=== PATIENT | female | born 1950 | race Caucasian/White ===

== ENCOUNTER 2017-01-14 12:38 | Inpatient (IN) | payer MEDICARE ==
[2017-01-14] MEDS ORDERED: NORMAL SALINE 1000 ML 1,000 ML IV PRN ×2 (12:46→18:05)
[2017-01-14] MEDS ORDERED: ASPIRIN 81 MG TABLET, CHEWABLE PO ONE (12:46)
--- NOTE | 2017-01-14 13:50 | RADIOLOGY REPORT (SQ) ---
EXAM DESCRIPTION: CT HEAD WITHOUT COMPLETED DATE/TIME: 01/14/2017 1:06 pm REASON FOR STUDY: altered COMPARISON: October 2015 TECHNIQUE: Axial images acquired through the brain without intravenous contrast. Images reviewed wi th bone, brain and subdural windows. Images stored on PACS. All CT scanners at this facility use dose modulation, iterative reconstruction, and/or weight based d osing when appropriate to reduce radiation dose to as low as reasonably achievable (ALARA). [facility]: Dose Right [facility]: CareDose [facility]: Dose Right [facility]: Teradose 4D [facility]: [email or web address] RADIATION DOSE: Up-to-date CT equipment and radiation dose reduction techniques were employed. CTDIv ol: 64.6 mGy. DLP: 2326 mGy-cm. mGy. LIMITATIONS: None. FINDINGS: VENTRICLES: Normal size and contour. CEREBRUM: No masses. No hemorrhage. No midline shift. There is a small focal relative low density area in the basal ganglia on the left which has the appearance of a lacunar infarct. CEREBELLUM: No masses. No hemorrhage. No alteration of density. No evidence for acute infarction. EXTRAAXIAL SPACES: No fluid collections. No masses. ORBITS AND GLOBE: No intra- or extraconal masses. Normal contour of globe without masses. CALVARIUM: No fracture. PARANASAL SINUSES: No fluid or mucosal thickening. SOFT TISSUES: No mass or hematoma. OTHER: No other significant finding. IMPRESSION: There is a small focal relative low density area in the basal ganglia on the left which has the appearance of the lacunar infarct. No other significant intracranial abnormalities were iden tified. Other findings as noted above EVIDENCE OF ACUTE STROKE: NO. COMMENT: Quality ID # [id number]: Final reports with documentation of one or more dose reduction techniques (e.g., Automated exposure control, adjustment of the mA and/or kV according to patient size, use of iterative reconstruction technique) TECHNICAL DOCUMENTATION: JOB ID: [id number] [email or web address]- All Rights Reserved
--- NOTE | 2017-01-14 13:51 | RADIOLOGY REPORT (SQ) ---
EXAM DESCRIPTION: CHEST SINGLE VIEW COMPLETED DATE/TIME: 01/14/2017 12:58 pm REASON FOR STUDY: syncope COMPARISON: 10/27/2015 EXAM PARAMETERS: NUMBER OF VIEWS: One view. TECHNIQUE: Single frontal radiographic view of the chest acquired. RADIATION DOSE: NA LIMITATIONS: None. FINDINGS: LUNGS AND PLEURA: Mild interstitial changes seen. There is ill-defined opacification in t he right lung compared to the left. MEDIASTINUM AND HILAR STRUCTURES: No masses. Contour normal. HEART AND VASCULAR STRUCTURES: Heart normal in size. Normal vasculature. BONES: No acute findings. HARDWARE: None in the chest. OTHER: No other significant finding. IMPRESSION: Chronic lung changes. Cannot exclude airspace disease in the right lung. TECHNICAL DOCUMENTATION: JOB ID: [id number]
[2017-01-14 14:03] LABS: ABSOLUTE LYMPHOCYTES (AUTO) 1.9 10^3/uL (0.5-4.7); ABSOLUTE NEUT (AUTO) 11.4 10^3/uL (1.7-8.2); BASOPHILS % (AUTO) 0.3 % (0-2); EOSINOPHILS % (AUTO) 0.2 % (0-6); HEMATOCRIT 33.2 % (36.0-47.0); HEMOGLOBIN 11.6 g/dL (12.0-15.5); HGB HCT DIFFERENCE 1.6; LYMPHOCYTES % (AUTO) 13.4 % (13-45); MEAN CORPUSCULAR HEMOGLOBIN 31.1 pg (27.0-33.4); MEAN CORPUSCULAR HGB CONC 34.9 g/dL (32.0-36.0); MEAN CORPUSCULAR VOLUME 89 fl (80-97); MONOCYTES % (AUTO) 6.9 % (3-13); RED BLOOD COUNT 3.73 10^6/uL (3.72-5.28); RED CELL DISTRIBUTION WIDTH 13.2 % (11.5-14.0); SEGMENTED NEUTROPHILS % (AUTO) 79.2 % (42-78); VENOUS BLOOD HCO3 23.6 mmol/L (20-32); VENOUS BLOOD PCO2 35.4 mmHg (35-63); VENOUS BLOOD PH 7.44 (7.30-7.42); WHITE BLOOD COUNT 14.4 10^3/uL (4.0-10.5)
[2017-01-14 14:19] LABS: ALANINE AMINOTRANSFERASE 48 U/L (9-52); ALBUMIN 3.4 g/dL (3.5-5.0); ALKALINE PHOSPHATASE 115 U/L (38-126); ANION GAP 11 (5-19); ASPARTATE AMINO TRANSFERASE 34 U/L (14-36); BILIRUBIN,DIRECT 0.4 mg/dL (0.0-0.4); BILIRUBIN,TOTAL 0.5 mg/dL (0.2-1.3); BLOOD UREA NITROGEN 21 mg/dL (7-20); CALCIUM 9.3 mg/dL (8.4-10.2); CARBON DIOXIDE 24 mmol/L (22-30); CHLORIDE 100 mmol/L (98-107); CREATINE KINASE 27 U/L (30-135); CREATININE RESULT 0.98 mg/dL (0.52-1.25); GLUCOSE 102 mg/dL (75-110); POTASSIUM 3.6 mmol/L (3.6-5.0); SODIUM 135.3 mmol/L (137-145); TOTAL PROTEIN 6.1 g/dL (6.3-8.2)
[2017-01-14 14:31] LABS: CREATINE KINASE MB 0.24 ng/mL (<4.55)
[2017-01-14 14:32] LABS: APPEARANCE,URINE SLIGHTLY-CLOUDY; BILIRUBIN,URINE NEGATIVE (NEGATIVE); GLUCOSE, URINE NEGATIVE (NEGATIVE); KETONES,URINE NEGATIVE (NEGATIVE); LEUKOCYTE ESTERASE,URINE NEGATIVE (NEGATIVE); NITRITE,URINE NEGATIVE (NEGATIVE); PROTEIN,URINE 30 mg/dL (NEGATIVE); URINE SPECIFIC GRAVITY 1.017
[2017-01-14 14:34] LABS: TROPONIN I < 0.012 ng/mL
[2017-01-14] MEDS ORDERED: CEFTRIAXONE 1 GM/D5W RTU 1 GM/50 ML RTUPB IV ONE (14:56)
--- NOTE | 2017-01-14 14:56 | ER Document Report ---
ED General - General Chief Complaint: Altered Mental Status Stated Complaint: FALL Time Seen by Provider: 01/14/17 12:45 Mode of Arrival: Ambulatory Information source: Patient Notes: 66-year-old female history of previous CVA COPD presents with complaints of low blood pressure not feeling well and confusion. Patient is she has had problems with her memory. She denies any fevers or chills was at her primary care physician's office today noted that she had a white count of 20 and was sent in for evaluation Patient notes about a week ago she passed out and struck her head TRAVEL OUTSIDE OF THE [place] IN LAST 30 DAYS: No - HPI Onset: Last week Onset/Duration: Persistent Quality of pain: Achy Severity: Mild Pain Level: 1 Associated symptoms: Headache Exacerbated by: Denies Relieved by: Denies Similar symptoms previously: No Recently seen / treated by doctor: Yes - Related Data Allergies/Adverse Reactions: ciprofloxacin [From Cipro] Allergy (Verified 10/27/15 15:00) Past Medical History - Social History Smoking Status: Former Smoker Cigarette use (# per day): No Chew tobacco use (# tins/day): No Smoking Education Provided: No Frequency of alcohol use: None Drug Abuse: None Family History: Reviewed & Not Pertinent - Past Medical History Cardiac Medical History: Reports: Hx Hypercholesterolemia Endocrine Medical History: Reports: Hx Diabetes Mellitus Type 2 Psychiatric Medical History: Reports: Hx Depression - Immunizations Hx Pneumococcal Vaccination: 12/26/14 Review of Systems - Review of Systems Notes: REVIEW OF SYSTEMS: CONSTITUTIONAL : Denies fever, chills, or sweats. Denies recent illness. EENT: Denies eye, ear, throat, or mouth pain or symptoms. Denies nasal or sinus congestion or discharge. Denies throat, tongue, or mouth swelling or difficulty swallowing. CARDIOVASCULAR: Denies chest pain. Denies palpitations or racing or irregular heart beat. Denies ankle edema. RESPIRATORY: Denies cough, cold, or chest congestion. Denies shortness of breath, difficulty breathing, or wheezing. GASTROINTESTINAL: Denies abdominal pain or distention. Denies nausea, vomiting , or diarrhea. Denies blood in vomitus, stools, or per rectum. Denies black, tarry stools. Denies constipation. GENITOURINARY: Denies difficulty urinating, painful urination, burning, frequency, blood in urine, or discharge. FEMALE GENITOURINARY: Denies vaginal bleeding, heavy or abnormal periods, irregular periods. Denies vaginal discharge or odor. MUSCULOSKELETAL: Denies back or neck pain or stiffness. Denies joint pain or swelling. SKIN: Denies rash, lesions or sores. HEMATOLOGIC : Denies easy bruising or bleeding. LYMPHATIC: Denies swollen, enlarged glands. NEUROLOGICAL: Admits to headache confusion PSYCHIATRIC: Denies anxiety or stress. Denies depression, suicidal ideation, or homicidal ideation. ALL OTHER SYSTEMS REVIEWED AND NEGATIVE. PHYSICAL EXAMINATION: GENERAL: Well-appearing, well-nourished and in no acute distress. HEAD: Atraumatic, normocephalic. EYES: Pupils equal round and reactive to light, extraocular movements intact, conjunctiva are normal. ENT: Nares patent, oropharynx clear without exudates. Moist mucous membranes. NECK: Normal range of motion, supple without lymphadenopathy LUNGS: Breath sounds clear to auscultation bilaterally and equal. No wheezes rales or rhonchi. HEART: Regular rate and rhythm without murmurs ABDOMEN: Soft, nontender, nondistended abdomen. No guarding, no rebound. No masses appreciated. Female : deferred Musculoskeletal: Normal range of motion, no pitting or edema. No cyanosis. NEUROLOGICAL: Cranial nerves grossly intact. Normal speech, normal gait. Normal sensory, motor exams PSYCH: Normal mood, normal affect. SKIN: Warm, Dry, normal turgor, no rashes or lesions noted. Dictation was performed using [employer] voice recognition software Physical Exam - Vital signs Vitals: Temp Pulse Resp BP Pulse Ox 99.2 F 80 20 109/58 L 97 01/14/17 12:48 01/14/17 12:48 01/14/17 12:48 01/14/17 12:48 01/14/17 12:48 Course - Re-evaluation Re-evalutation: 01/14/17 15:04 Patient is noted to have a white count 14.4, there is a questionable pneumonia noted on the chest x-ray. A CT was performed and does in fact show a lacunar infarct. Patient was given aspirin. I will observe her in the hospital for further evaluation and care especially with this possible CVA 01/14/17 15:05 Patient is noted to be hypotensive and was given 2-1/2 L of normal saline for her low blood pressure - Vital Signs Vital signs: Temp Pulse Resp BP Pulse Ox 99.2 F 80 16 95/67 L 94 01/14/17 12:48 01/14/17 12:48 01/14/17 13:27 01/14/17 13:27 01/14/17 13:27 - Laboratory Result Diagrams: 01/14/17 13:38 01/14/17 13:38 Laboratory results interpreted by me: 01/14/17 01/14/17 01/14/17 13:38 13:38 13:38 WBC 14.4 H Hgb 11.6 L Hct 33.2 L Seg Neutrophils % 79.2 H Absolute Neutrophils 11.4 H VBG pH 7.44 H Sodium 135.3 L BUN 21 H Est GFR (Non-Af Amer) 57 L Creatine Kinase 27 L Total Protein 6.1 L Albumin 3.4 L Urine Protein Urine Urobilinogen 01/14/17 14:10 WBC Hgb Hct Seg Neutrophils % Absolute Neutrophils VBG pH Sodium BUN Est GFR (Non-Af Amer) Creatine Kinase Total Protein Albumin Urine Protein 30 H Urine Urobilinogen 4.0 H - Diagnostic Test Radiology reviewed: Image reviewed, Reports reviewed - EKG Interpretation by Me EKG shows normal: Sinus rhythm, [place], Intervals, QRS Complexes Discharge - Discharge Clinical Impression: CVA (cerebral vascular accident) Qualifiers: CVA mechanism: embolism Precerebral and cerebral artery: unspecified cerebral artery Qualified Code(s): I63.40 - Cerebral infarction due to embolism of unspecified cerebral artery Hypotension Qualifiers: Hypotension type: unspecified hypotension type Qualified Code(s): I95.9 - Hypotension, unspecified Condition: Stable Disposition: ADMITTED INPATIENT Admitting Provider: Hospitalist Unit Admitted: IMCU
[2017-01-14] MEDS ORDERED: HYDROMORPHONE HCL INJ/PF 2 MG/ML AMPULE IV ONE (15:03)
[2017-01-14] MEDS ORDERED: ALBUTEROL SULFATE HFA (90 MCG/PUFF) 8 GM MDI (1 MDI/ER DISP) IH PRN (17:59)
[2017-01-14] MEDS ORDERED: DOCUSATE SODIUM 100 MG CAPSULE PO PRN (18:05)
[2017-01-14] MEDS ORDERED: ONDANSETRON HCL INJ/PF 4 MG/2 ML SDV IV PRN (18:05)
--- NOTE | 2017-01-14 18:36 | PDOC H&P ---
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 However at that time she could not remember totally what happened. Sister was with her witness and reports that she lost her balance when she tripped. She did not lose her consciousness. She was not having any seizure episode. Apparently since then the patient was having discomfort and pain in the neck. Likewise the patient was noted to have confusion intermittently. There is no nausea or vomiting. Patient reports some lightheadedness and dizziness at times. Eventually her blood pressure was checked and reportedly it was in the 80s systolic. She takes 3 with blood pressure medications for hypertension. There was no diarrhea nor any increasing coughing or sinus congestion or sore throat reported likewise there is no dysuria urgency or frequency nor any nausea or vomiting. No reported abdominal discomfort nor any vaginal discharge as well. Her symptoms got worse and therefore she presents to her primary care physician where she was found to have an elevated WBC of 20,000. The patient was sent to the emergency room for evaluation. Patient however stated that she had a cortisone shot with Kenalog about 2 weeks ago from the pain center. In the emergency room WBC was 14,000. CT scan of the brain did reveal lacunar infarct but not acute. The patient was then referred for admission for stroke contributing to the fall. Past Medical History Cardiac Medical History: Reports: Hyperlipidema Pulmonary Medical History: Reports: Chronic Obstructive Pulmonary Disease (COPD) Neurological Medical History: Reports: Ischemic CVA, Other - Priors mini stroke without any deficits. Endocrine Medical History: Reports: Diabetes Mellitus Type 2 Psychiatric Medical History: Reports: Depression Past Surgical History Past Surgical History: No recent surgeries. Past Surgical History: Reports: None Social History Information Source: Patient Smoking Status: Current Every Day Smoker Cigarettes Packs Per Day: 1 Frequency of Alcohol Use: Rare Hx Recreational Drug Use: No Drugs: None Hx Prescription Drug Abuse: No - Advance Directive Resuscitation Status: Full Code Family History Family History: CVA, DM, Hypertension Parental Family History Reviewed: Yes Children Family History Reviewed: Yes Sibling(s) Family History Reviewed.: Yes Medication/Allergy Home Medications: Atorvastatin Calcium [Lipitor 40 mg Tablet] 40 mg PO DAILY 10/27/15 Fluoxetine HCl [Prozac] 40 mg PO QHS 10/27/15 Hydrochlorothiazide 25 mg PO DAILY 10/27/15 Losartan Potassium 100 mg PO DAILY 10/27/15 Metformin HCl 500 mg PO DAILYP PRN 10/27/15 Metoprolol Succinate 25 mg PO DAILY 10/27/15 Morphine Sulfate 30 mg PO BID@1400,2100 10/27/15 Oxymorphone HCl [Opana] 5 mg PO Q12@0700,1900 10/27/15 Tramadol HCl 100 mg PO BID@1400,209910/27/15 Gabapentin [Neurontin] 1,200 mg PO Q8 10/29/15 Albuterol Sulfate [Proair HFA] 2 puff IH QIDP PRN 01/14/17 Ibuprofen [Motrin 600 mg Tablet] 600 mg PO BIDP PRN 01/14/17 Ondansetron [Zofran Odt] 8 mg PO Q8HP PRN 01/14/17 Tramadol HCl [Ultram 50 mg Tablet] 50 mg PO DAILYP PRN 01/14/17 Allergies/Adverse Reactions: ciprofloxacin [From Cipro] Allergy (Verified 10/27/15 15:00) Review of Systems Constitutional: PRESENT: headache(s) - Intermittent mainly on the back of the head where she hit the floor. ABSENT: chills, fever(s), night sweats, weakness , weight gain, weight loss Eyes: ABSENT: visual disturbances Ears: ABSENT: hearing changes Nose, Mouth, and Throat: ABSENT: mouth pain, sore throat Cardiovascular: ABSENT: chest pain, dyspnea on exertion, edema, orthropnea, palpitations Respiratory: PRESENT: cough - Occasional. ABSENT: dyspnea, hemoptysis, sputum Gastrointestinal: PRESENT: constipation. ABSENT: abdominal pain, diarrhea, hematemesis, hematochezia, melena, nausea, vomiting Genitourinary: ABSENT: difficulty urinating, dysuria, hematuria Musculoskeletal: ABSENT: joint swelling Integumentary: ABSENT: pruritus, rash, wounds Neurological: PRESENT: confusion, dizziness. ABSENT: abnormal gait, abnormal speech, focal weakness, syncope Psychiatric: ABSENT: anxiety, depression, homidical ideation, suicidal ideation Endocrine: ABSENT: cold intolerance, heat intolerance, polydipsia, polyphagia, polyuria Hematologic/Lymphatic: ABSENT: easy bleeding, easy bruising Physical Exam Vital Signs: Temp Pulse Resp BP Pulse Ox 98.4 F 77 18 119/78 91 L 01/14/17 17:15 01/14/17 17:15 01/14/17 17:15 01/14/17 17:15 01/14/17 17:15 Intake & Output 01/13/17 01/14/17 01/15/17 06:59 06:59 06:59 Weight 91.8 kg General appearance: PRESENT: no acute distress, morbidly obese Head exam: PRESENT: atraumatic - No noted rash nor ecchymosis nor wounds on the head., normocephalic Eye exam: PRESENT: conjunctiva pink, EOMI, PERRLA. ABSENT: scleral icterus Ear exam: PRESENT: normal external ear exam Mouth exam: PRESENT: dry mucosa, neck supple, tongue midline Throat exam: ABSENT: post pharyngeal erythema, tonsillar erythema Neck exam: ABSENT: carotid bruit, JVD, lymphadenopathy, thyromegaly Respiratory exam: PRESENT: clear to auscultation thai, unlabored. ABSENT: rales , rhonchi, wheezes Cardiovascular exam: PRESENT: RRR, +S1, +S2. ABSENT: diastolic murmur, gallop, rubs, systolic murmur Pulses: PRESENT: normal dorsalis pedis pul Vascular exam: PRESENT: normal capillary refill GI/Abdominal exam: PRESENT: normal bowel sounds, soft. ABSENT: distended, guarding, mass, organolmegaly, rebound, tenderness Rectal exam: PRESENT: deferred Extremities exam: PRESENT: full ROM. ABSENT: calf tenderness, clubbing, pedal edema Neurological exam: PRESENT: alert, awake, oriented to person, oriented to place , oriented to time, oriented to situation Psychiatric exam: PRESENT: appropriate affect, normal mood. ABSENT: homicidal ideation, suicidal ideation Skin exam: PRESENT: dry, intact, warm. ABSENT: cyanosis, rash Results Laboratory Results: 01/14/17 16:55 Troponin I < 0.012 Impressions: Chest X-Ray 01/14/17 12:46 IMPRESSION: Chronic lung changes. Cannot exclude airspace disease in the right lung. Head CT 01/14/17 12:50 IMPRESSION: There is a small focal relative low density area in the basal ganglia on the left which has the appearance of the lacunar infarct. No other significant intracranial abnormalities were identified. Other findings as noted above EVIDENCE OF ACUTE STROKE: NO. Assessment & Plan - Diagnosis (1) Lacunar infarction Is this a current diagnosis for this admission?: Yes (2) Confusion Is this a current diagnosis for this admission?: Yes (3) Leukocytosis Qualifiers: Leukocytosis type: unspecified Qualified Code(s): D72.829 - Elevated white blood cell count, unspecified Is this a current diagnosis for this admission?: Yes (4) Hypotension Qualifiers: Hypotension type: hypotension due to drug Qualified Code(s): I95.2 - Hypotension due to drugs Is this a current diagnosis for this admission?: Yes (5) COPD (chronic obstructive pulmonary disease) Qualifiers: COPD type: unspecified COPD Qualified Code(s): J44.9 - Chronic obstructive pulmonary disease, unspecified Is this a current diagnosis for this admission?: Yes (6) Hyperlipidemia Qualifiers: Hyperlipidemia type: unspecified Qualified Code(s): E78.5 - Hyperlipidemia , unspecified Is this a current diagnosis for this admission?: Yes (7) Diabetes mellitus type 2 in obese Is this a current diagnosis for this admission?: Yes (8) Depression Qualifiers: Depression Type: unspecified Qualified Code(s): F32.9 - Major depressive disorder, single episode, unspecified (9) History of stroke Is this a current diagnosis for this admission?: Yes - Time Time Spent: 50 to 70 Minutes Within: within 48 hours - Inpatient Certification Based on my medical assessment, after consideration of the patient's comorbidities, presenting symptoms, or acuity I expect that the services needed warrant INPATIENT care.: Yes I certify that my determination is in accordance with my understanding of Medicare's requirements for reasonable and necessary INPATIENT services [42 CFR 412.3e].: Yes Medical Necessity: Need Close Monitoring Due to Risk of Patient Decompensation, Need For IV Fluids, Risk of Complication if Not Cared For in Hospital Post Hospital Care: D/C [employer] Inspector Documentation - Plan Summary Plan Summary: The patient will be admitted to telemetry. We will obtain MRI of the brain as well as carotid Doppler and 2D echocardiogram. In the meantime I will put the patient on aspirin. We will obtain a cervical spine CT. I will hold her antihypertensive medications. I will hydrate the patient with normal saline. We will monitor blood pressure and creatinine. I will continue her home medications for pain control except for the Ultram. Her leukocytosis probably related to recent intra-articular corticosteroid. We will proceed with a urine culture, but hold any antibiotics for now. We will check a KUB for impaction. DVT prophylaxis with Lovenox will be placed. Further testing depends on the initial evaluations outlined above.
[2017-01-14] MEDS ORDERED: ALBUTEROL SULFATE HFA (90 MCG/PUFF) 200 PUFF/8.5 GM MDI IH PRN (18:38)
[2017-01-14] MEDS ORDERED: OXYMORPHONE HCL 5 MG PO SCH (19:00)
[2017-01-14] MEDS ORDERED: ENOXAPARIN SODIUM INJ 40 MG/0.4 ML DISP.SYRIN SUBCUT ONE (19:30)
--- NOTE | 2017-01-14 20:18 | RADIOLOGY REPORT (SQ) ---
EXAM DESCRIPTION: CT CERVICAL SPINE WITHOUT COMPLETED DATE/TIME: 01/14/2017 7:52 pm REASON FOR STUDY: neck pain, fall COMPARISON: None. TECHNIQUE: Axial images acquired through the cervical spine without intravenous contrast. Images re viewed with lung, soft tissue and bone windows. Reconstructed coronal and sagittal MPR images review ed. Images stored on PACS. All CT scanners at this facility use dose modulation, iterative reconstruction, and/or weight based d osing when appropriate to reduce radiation dose to as low as reasonably achievable (ALARA). [facility]: Dose Right [facility]: CareDose [facility]: Dose Right [facility]: Teradose 4D [facility]: Smart [employer] RADIATION DOSE: Up-to-date CT equipment and radiation dose reduction techniques were employed. CTDIv ol: 27.5 mGy. DLP: 520 mGy-cm. mGy. LIMITATIONS: None. FINDINGS: ALIGNMENT: Anatomic. MINERALIZATION: Normal. VERTEBRAL BODIES: No fractures or dislocation. DISCS: Multilevel disc space narrowing with osteophytes. FACETS, LATERAL MASSES, POSTERIOR ELEMENTS: Facet arthropathy. No fractures. No dislocation. No ac alla findings. HARDWARE: None in the spine. VISUALIZED RIBS: No fractures. LUNG APICES AND SOFT TISSUES: No significant or acute findings. OTHER: No other significant finding. IMPRESSION: CHRONIC DEGENERATIVE CHANGES. NO ACUTE FINDINGS. TECHNICAL DOCUMENTATION: JOB ID: [id number] Quality ID # [id number]: Final reports with documentation of one or more dose reduction techniques (e.g., Au tomated exposure control, adjustment of the mA and/or kV according to patient size, use of iterative reconstruction technique) 2010 [employer]- All Rights Reserved
--- NOTE | 2017-01-14 20:21 | RADIOLOGY REPORT (SQ) ---
EXAM DESCRIPTION: KUB/ABDOMEN (SINGLE VIEW) COMPLETED DATE/TIME: 01/14/2017 8:01 pm REASON FOR STUDY: Constipation and impaction COMPARISON: None. NUMBER OF VIEWS: One view. TECHNIQUE: Supine radiographic image of the abdomen acquired. LIMITATIONS: None. FINDINGS: BOWEL GAS PATTERN: Normal bowel gas pattern. No dilated loops. CONSTIPATION: moderate CALCIFICATIONS: No suspicious calcifications. SOFT TISSUES: No gross mass or suggestion of organomegaly. HARDWARE: None in the abdomen. BONES: No acute fracture. No worrisome bone lesions. OTHER: No other significant finding. IMPRESSION: NO RADIOGRAPHIC EVIDENCE FOR ACUTE ABDOMINAL DISEASE. Moderate constipation. TECHNICAL DOCUMENTATION: JOB ID: [id number]- All Rights Reserved
--- NOTE | 2017-01-14 20:53 | RADIOLOGY REPORT (SQ) ---
EXAM DESCRIPTION: MRI HEAD WITHOUT COMPLETED DATE/TIME: 01/14/2017 8:43 pm REASON FOR STUDY: stroke COMPARISON: Head CT from 01/14/2017 TECHNIQUE: Multiplanar imaging includes non-contrasted T1, T2, FLAIR, and Diffusion with ADC map seq uences. Images stored on PACS. LIMITATIONS: None. FINDINGS: ANATOMY: No anomalies. Normal vascular flow voids. Pituitary fossa normal. CSF SPACES: Normal in size and contour. No hemorrhage. CEREBRUM: A few high-signal intensity lesions scattered throughout the white matter on FLAIR imaging with distribution suggesting chronic micro-vascular ischemic change. Sulci and gyri normal in size a nd contour. No evidence of hemorrhage, mass or extraaxial fluid collection. POSTERIOR FOSSA: No signal alteration. No hemorrhage. No edema, masses or mass effect. Internal nilda tory canals, cerebello-pontine angles, mastoids normal. DIFFUSION: Negative for acute or sub-acute infarction. ORBITS: No masses. Globes normal. PARANASAL SINUSES: No fluid levels. Mucosa normal. OTHER: No other significant finding. IMPRESSION: MILD CHRONIC MICROVASCULAR ISCHEMIC CHANGE. NO ACUTE ISCHEMIA, HEMORRHAGE, OR MASS LESI ON. EVIDENCE OF ACUTE STROKE: NO. TECHNICAL DOCUMENTATION: JOB ID: [id number] [employer]- All Rights Reserved
[2017-01-14] MEDS: GABAPENTIN 400 MG CAPSULE PO SCH (21:06)
[2017-01-14] MEDS: MORPHINE SULFATE IR 30 MG TABLET PO SCH (21:07)
[2017-01-14] MEDS: FLUOXETINE HCL 20 MG CAPSULE PO SCH (21:07)
[2017-01-14] MEDS: OXYMORPHONE HCL 5 MG PO SCH (21:11)
[2017-01-15] MEDS: ACETAMINOPHEN 325 MG TABLET PO PRN ×2 (00:39→11:59)
[2017-01-15] MEDS: GABAPENTIN 400 MG CAPSULE PO SCH ×3 (05:34→21:44)
[2017-01-15] MEDS: LANSOPRAZOLE 30 MG TAB.RAP.DR PO SCH (05:34)
[2017-01-15 05:52] LABS: ABSOLUTE EOSINOPHILS # (AUTO) 0.1 10^3/uL (0.0-0.6); ABSOLUTE LYMPHOCYTES (AUTO) 2.5 10^3/uL (0.5-4.7); ABSOLUTE MONOCYTES (AUTO) 0.8 10^3/uL (0.1-1.4); ABSOLUTE NEUT (AUTO) 6.7 10^3/uL (1.7-8.2); BASOPHILS % (AUTO) 0.5 % (0-2); EOSINOPHILS % (AUTO) 0.5 % (0-6); HEMATOCRIT 28.8 % (36.0-47.0); HEMOGLOBIN 9.9 g/dL (12.0-15.5); HGB HCT DIFFERENCE 0.9; LYMPHOCYTES % (AUTO) 24.4 % (13-45); MEAN CORPUSCULAR HEMOGLOBIN 31.1 pg (27.0-33.4); MEAN CORPUSCULAR HGB CONC 34.4 g/dL (32.0-36.0); MEAN CORPUSCULAR VOLUME 90 fl (80-97); RED BLOOD COUNT 3.19 10^6/uL (3.72-5.28); RED CELL DISTRIBUTION WIDTH 13.3 % (11.5-14.0); SEGMENTED NEUTROPHILS % (AUTO) 66.6 % (42-78); WHITE BLOOD COUNT 10.1 10^3/uL (4.0-10.5)
[2017-01-15 06:18] LABS: ANION GAP 9 (5-19); BLOOD UREA NITROGEN 12 mg/dL (7-20); CARBON DIOXIDE 25 mmol/L (22-30); CHLORIDE 107 mmol/L (98-107); CHOLESTEROL 123.37 mg/dL (0-200); Direct HDL 51 mg/dL (>40); GLUCOSE 86 mg/dL (75-110); POTASSIUM 3.7 mmol/L (3.6-5.0); SODIUM 141.1 mmol/L (137-145); TRIGLYCERIDES 69 mg/dL (<150)
[2017-01-15 06:29] LABS: DIRECT LDL 48 mg/dL (<100)
[2017-01-15] MEDS ORDERED: OXYMORPHONE HCL 5 MG PO ONE (07:45)
[2017-01-15] MEDS: METOPROLOL SUCCINATE 25 MG TAB.SR.24H PO SCH (09:53)
[2017-01-15] MEDS: ATORVASTATIN CALCIUM 40 MG TABLET PO SCH (09:53)
[2017-01-15] MEDS: ASPIRIN 81 MG TABLET, CHEWABLE PO SCH (09:53)
[2017-01-15] MEDS: ENOXAPARIN SODIUM INJ 40 MG/0.4 ML DISP.SYRIN SUBCUT SCH (09:54)
--- NOTE | 2017-01-15 10:39 | EKG REPORT ---
SEVERITY:- ABNORMAL ECG - ACCELERATED JUNCTIONAL RHYTHM : Confirmed by: Virginia Willoughby MD 15-Jan-2017 10:38:31
[2017-01-15] MEDS ORDERED: NORMAL SALINE 1000 ML 1,000 ML IV PRN (12:02)
--- NOTE | 2017-01-15 12:09 | PDOC PROGRESS REPORT ---
Subjective Progress Note for:: 01/15/17 Subjective:: Still with headache and back pain but less. No reported chills fever. No nausea or vomiting. No coughing or shortness of breath. No PND orthopnea. Physical Exam Vital Signs: Temp Pulse Resp BP Pulse Ox 97.8 F 59 L 18 113/54 L 94 01/15/17 07:13 01/15/17 08:00 01/15/17 08:00 01/15/17 08:00 01/15/17 08:00 Intake & Output 01/14/17 01/15/17 01/16/17 06:59 06:59 06:59 Intake Total 1572 Output Total 2500 Balance -928 Weight 91.2 kg General appearance: PRESENT: no acute distress, cooperative, morbidly obese Head exam: PRESENT: normocephalic Eye exam: PRESENT: EOMI Mouth exam: PRESENT: moist, neck supple Neck exam: ABSENT: JVD Respiratory exam: PRESENT: clear to auscultation thai. ABSENT: rhonchi, wheezes Cardiovascular exam: PRESENT: RRR. ABSENT: gallop GI/Abdominal exam: PRESENT: hypoactive bowel sounds, soft. ABSENT: distended - Obese Neurological exam: PRESENT: alert, awake, oriented to person, oriented to place , oriented to time, oriented to situation Skin exam: PRESENT: dry, warm. ABSENT: cyanosis Results Laboratory Results: 01/15/17 04:52 01/15/17 04:52 01/15/17 01/15/17 04:52 04:52 WBC 10.1 RBC 3.19 L Hgb 9.9 L Hct 28.8 L MCV 90 MCH 31.1 MCHC 34.4 RDW 13.3 Plt Count 325 Seg Neutrophils % 66.6 Lymphocytes % 24.4 Monocytes % 8.0 Eosinophils % 0.5 Basophils % 0.5 Absolute Neutrophils 6.7 Absolute Lymphocytes 2.5 Absolute Monocytes 0.8 Absolute Eosinophils 0.1 Absolute Basophils 0.0 Sodium 141.1 Potassium 3.7 Chloride 107 Carbon Dioxide 25 Anion Gap 9 BUN 12 Creatinine 0.60 Est GFR ( Amer) > 60 Est GFR (Non-Af Amer) > 60 Glucose 86 Calcium 9.0 Triglycerides 69 Cholesterol 123.37 LDL Cholesterol Direct 48 VLDL Cholesterol 14.0 HDL Cholesterol 51 Impressions: Cervical Spine CT 01/14/17 00:00 IMPRESSION: CHRONIC DEGENERATIVE CHANGES. NO ACUTE FINDINGS. Head MRI 01/14/17 00:00 IMPRESSION: MILD CHRONIC MICROVASCULAR ISCHEMIC CHANGE. NO ACUTE ISCHEMIA, HEMORRHAGE, OR MASS LESION. EVIDENCE OF ACUTE STROKE: NO. KUB X-Ray 01/14/17 00:00 IMPRESSION: NO RADIOGRAPHIC EVIDENCE FOR ACUTE ABDOMINAL DISEASE. Moderate constipation. Chest X-Ray 01/14/17 12:46 IMPRESSION: Chronic lung changes. Cannot exclude airspace disease in the right lung. Head CT 01/14/17 12:50 IMPRESSION: There is a small focal relative low density area in the basal ganglia on the left which has the appearance of the lacunar infarct. No other significant intracranial abnormalities were identified. Other findings as noted above EVIDENCE OF ACUTE STROKE: NO. Assessment & Plan - Diagnosis (1) Lacunar infarction Is this a current diagnosis for this admission?: Yes (2) Confusion Is this a current diagnosis for this admission?: Yes (3) Leukocytosis Qualifiers: Leukocytosis type: unspecified Qualified Code(s): D72.829 - Elevated white blood cell count, unspecified Is this a current diagnosis for this admission?: Yes (4) Hypotension Qualifiers: Hypotension type: hypotension due to drug Qualified Code(s): I95.2 - Hypotension due to drugs Is this a current diagnosis for this admission?: Yes (5) COPD (chronic obstructive pulmonary disease) Qualifiers: COPD type: unspecified COPD Qualified Code(s): J44.9 - Chronic obstructive pulmonary disease, unspecified Is this a current diagnosis for this admission?: Yes (6) Hyperlipidemia Qualifiers: Hyperlipidemia type: unspecified Qualified Code(s): E78.5 - Hyperlipidemia , unspecified Is this a current diagnosis for this admission?: Yes (7) Diabetes mellitus type 2 in obese Is this a current diagnosis for this admission?: Yes (8) Depression Qualifiers: Depression Type: unspecified Qualified Code(s): F32.9 - Major depressive disorder, single episode, unspecified (9) History of stroke Is this a current diagnosis for this admission?: Yes - Time Time Spent with patient: 15-24 minutes - Plan Summary Plan Summary: Continue medications for pain management. Flexeril. Continue antiplatelet therapy. I have educated the patient and the family they may have to discontinue diuretics and ARB for hypertension. Keep beta-yesika. We will observe the patient overnight and if it continues to get better in the morning we will discharge home.
[2017-01-15] MEDS: CYCLOBENZAPRINE HCL 10 MG TABLET PO SCH ×2 (13:09→21:44)
[2017-01-15] MEDS: MORPHINE SULFATE IR 30 MG TABLET PO SCH ×2 (13:09→21:20)
[2017-01-15] MEDS: OXYMORPHONE HCL 5 MG PO SCH (18:22)
[2017-01-15] MEDS: FLUOXETINE HCL 20 MG CAPSULE PO SCH (21:44)
[2017-01-16] MEDS: ACETAMINOPHEN 325 MG TABLET PO PRN (02:58)
[2017-01-16] MEDS: CYCLOBENZAPRINE HCL 10 MG TABLET PO SCH (05:42)
[2017-01-16] MEDS: LANSOPRAZOLE 30 MG TAB.RAP.DR PO SCH (05:42)
[2017-01-16] MEDS: GABAPENTIN 400 MG CAPSULE PO SCH (05:42)
[2017-01-16 06:26] LABS: HEMATOCRIT 28.5 % (36.0-47.0); HEMOGLOBIN 9.9 g/dL (12.0-15.5); HGB HCT DIFFERENCE 1.2; MEAN CORPUSCULAR HGB CONC 34.6 g/dL (32.0-36.0); MEAN CORPUSCULAR VOLUME 90 fl (80-97); RED BLOOD COUNT 3.18 10^6/uL (3.72-5.28); RED CELL DISTRIBUTION WIDTH 13.2 % (11.5-14.0); WHITE BLOOD COUNT 9.3 10^3/uL (4.0-10.5)
[2017-01-16] MEDS: OXYMORPHONE HCL 5 MG PO SCH (06:42)
[2017-01-16] MEDS: METOPROLOL SUCCINATE 25 MG TAB.SR.24H PO SCH (09:53)
[2017-01-16] MEDS: ASPIRIN 81 MG TABLET, CHEWABLE PO SCH (09:53)
[2017-01-16] MEDS: ATORVASTATIN CALCIUM 40 MG TABLET PO SCH (09:53)
[2017-01-16] MEDS: ENOXAPARIN SODIUM INJ 40 MG/0.4 ML DISP.SYRIN SUBCUT SCH (09:54)
--- NOTE | 2017-01-16 10:35 | PDOC DISCHARGE SUMMARY ---
General - Admit/Disc Date/PCP Admission Date/Primary Care Provider: 01/14/17 18:05 Discharge Date: 01/16/17 - Discharge Diagnosis (1) Confusion Is this a current diagnosis for this admission?: Yes (2) Leukocytosis Is this a current diagnosis for this admission?: Yes (3) Hypotension Is this a current diagnosis for this admission?: Yes (4) COPD (chronic obstructive pulmonary disease) Is this a current diagnosis for this admission?: Yes (5) Hyperlipidemia Is this a current diagnosis for this admission?: Yes (6) Diabetes mellitus type 2 in obese Is this a current diagnosis for this admission?: Yes (8) History of stroke Is this a current diagnosis for this admission?: Yes - Additional Information Resuscitation Status: Full Code Discharge Diet: Cardiac - Low-fat low-salt, Diabetic - No concentrated sweets Discharge Activity: Activity As Tolerated, Balance Activity w/Rest Home Medications: Atorvastatin Calcium [Lipitor 40 mg Tablet] 40 mg PO DAILY 10/27/15 Fluoxetine HCl [Prozac] 40 mg PO QHS 10/27/15 Metformin HCl 500 mg PO DAILYP PRN 10/27/15 Metoprolol Succinate 25 mg PO DAILY 10/27/15 Morphine Sulfate 30 mg PO BID@1400,2100 10/27/15 Oxymorphone HCl [Opana] 5 mg PO Q12@0700,1900 10/27/15 Gabapentin [Neurontin] 1,200 mg PO Q8 10/29/15 Albuterol Sulfate [Proair HFA] 2 puff IH QIDP PRN 01/14/17 Ibuprofen [Motrin 600 mg Tablet] 600 mg PO BIDP PRN 01/14/17 Ondansetron [Zofran Odt] 8 mg PO Q8HP PRN 01/14/17 Amox Tr/Potassium Clavulanate [Augmentin "500" Tablet] 1 tab PO Q8 #30 tablet 01/16/17 Aspirin [Aspirin 81 mg Chewable Tablet] 81 mg PO DAILY tab.chew 01/16/17 Cyclobenzaprine HCl [Flexeril 10 mg Tablet] 5 mg PO Q8 PRN tablet 01/16/17 Docusate Sodium [Colace 100 mg Capsule] 100 mg PO BIDP PRN capsule 01/16/17 Additional Information: Return to the emergency room if symptoms recur. Carotid Doppler and echocardiogram outpatient with primary care physician. 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 However at that time she could not remember totally what happened. Sister was with her witness and reports that she lost her balance when she tripped. She did not lose her consciousness. She was not having any seizure episode. Apparently since then the patient was having discomfort and pain in the neck. Likewise the patient was noted to have confusion intermittently. There is no nausea or vomiting. Patient reports some lightheadedness and dizziness at times. Eventually her blood pressure was checked and reportedly it was in the 80s systolic. She takes 3 with blood pressure medications for hypertension. There was no diarrhea nor any increasing coughing or sinus congestion or sore throat reported likewise there is no dysuria urgency or frequency nor any nausea or vomiting. No reported abdominal discomfort nor any vaginal discharge as well. Her symptoms got worse and therefore she presents to her primary care physician where she was found to have an elevated WBC of 20,000. The patient was sent to the emergency room for evaluation. Patient however stated that she had a cortisone shot with Kenalog about 2 weeks ago from the pain center. In the emergency room WBC was 14,000. CT scan of the brain did reveal lacunar infarct but not acute. The patient was then referred for admission for stroke contributing to the fall. Physical Exam Vital Signs: Temp Pulse Resp BP Pulse Ox 98.6 F 70 16 129/71 H 94 01/16/17 07:41 01/16/17 07:41 01/16/17 07:41 01/16/17 07:41 01/16/17 07:41 Intake & Output 01/15/17 01/16/17 01/17/17 06:59 06:59 06:59 Intake Total 1572 3514 Output Total 2500 1303 Balance -928 2211 Weight 91.2 kg 92.4 kg General appearance: PRESENT: no acute distress, cooperative Head exam: PRESENT: normocephalic Eye exam: PRESENT: EOMI Mouth exam: PRESENT: moist, neck supple Neck exam: ABSENT: JVD Respiratory exam: PRESENT: clear to auscultation thai. ABSENT: rhonchi, wheezes Cardiovascular exam: PRESENT: RRR. ABSENT: gallop GI/Abdominal exam: PRESENT: soft. ABSENT: distended, tenderness Extremities exam: ABSENT: pedal edema Neurological exam: PRESENT: alert, awake, oriented to person, oriented to place , oriented to time, oriented to situation, CN II-XII grossly intact Skin exam: PRESENT: dry, warm. ABSENT: cyanosis Results Laboratory Results: 01/16/17 05:15 01/15/17 04:52 01/16/17 05:15 WBC 9.3 RBC 3.18 L Hgb 9.9 L Hct 28.5 L MCV 90 MCH 31.0 MCHC 34.6 RDW 13.2 Plt Count 287 Impressions: Cervical Spine CT 01/14/17 00:00 IMPRESSION: CHRONIC DEGENERATIVE CHANGES. NO ACUTE FINDINGS. Head MRI 01/14/17 00:00 IMPRESSION: MILD CHRONIC MICROVASCULAR ISCHEMIC CHANGE. NO ACUTE ISCHEMIA, HEMORRHAGE, OR MASS LESION. EVIDENCE OF ACUTE STROKE: NO. KUB X-Ray 01/14/17 00:00 IMPRESSION: NO RADIOGRAPHIC EVIDENCE FOR ACUTE ABDOMINAL DISEASE. Moderate constipation. Chest X-Ray 01/14/17 12:46 IMPRESSION: Chronic lung changes. Cannot exclude airspace disease in the right lung. Head CT 01/14/17 12:50 IMPRESSION: There is a small focal relative low density area in the basal ganglia on the left which has the appearance of the lacunar infarct. No other significant intracranial abnormalities were identified. Other findings as noted above EVIDENCE OF ACUTE STROKE: NO. Qualifiers PATEINT BEING DISCHARGED WITH ANY OF THE FOLLOWING DIAGNOSIS?: No Plan Discharge Plan: Follow-up with primary care physician in 1 week. Time Spent: Less than 30 Minutes
[2017-01-16] MEDS ORDERED: INFLUENZA ADLT QUAD (36MOS+) 2017-18 VAC 0.5 ML SYR IM PRN (11:30)
[2017-01-16] MEDS ORDERED: AMOXICILLIN TR/POT CLAVULANATE 500-125 MG TAB PO ONE (12:30)
[2017-01-16 12:41] VITALS: BP 127/62
[2017-01-16] MEDS ORDERED: AMOXICILLIN TR/POT CLAVULANATE 500-125 MG TAB PO SCH (22:00)
== END 2017-01-16 13:41 | disposition home health service (06) | DRG 552 ==
LOC: ER 12:38 → EH 15:36 → UNDOADMIN 15:36 → EH 17:12 → 3W 17:12
PROC: 3E0234Z Introduction of Serum, Toxoid and Vaccine into Muscle, Percutaneous Approach (ICD-10-PCS; principal; 2017-01-16)
DX: M54.2 Cervicalgia (principal); R41.82 Altered mental status, unspecified; R41.0 Disorientation, unspecified; I95.2 Hypotension due to drugs; E78.5 Hyperlipidemia, unspecified; E11.9 Type 2 diabetes mellitus without complications; E66.9 Obesity, unspecified; G89.4 Chronic pain syndrome; J44.9 Chronic obstructive pulmonary disease, unspecified; W01.0XXA Fall on same level from slipping, tripping and stumbling without subsequent striking against object, initial encounter; I10 Essential (primary) hypertension; F32.9 Major depressive disorder, single episode, unspecified; F17.210 Nicotine dependence, cigarettes, uncomplicated; K59.00 Constipation, unspecified; D72.829 Elevated white blood cell count, unspecified; Z68.35 Body mass index [BMI] 35.0-35.9, adult; Z23 Encounter for immunization; Z88.3 Allergy status to other anti-infective agents; Z79.899 Other long term (current) drug therapy; Z86.73 Personal history of transient ischemic attack (TIA), and cerebral infarction without residual deficits; Z82.3 Family history of stroke; Z83.3 Family history of diabetes mellitus; Z82.49 Family history of ischemic heart disease and other diseases of the circulatory system
CPT/HCPCS: 36415; 70450; 70551; 71010; 72125; 74000; 80048; 80053; 80061; 81001; 82550; 82553; 82803; 83036; 83605; 84484; 85025; 85027; 87040; 87086; 90686; 93005; 93010; 96361; 96365; 96375; 99285; G8978-GP; G8979-GP; J0696; J1170; J1650; J2405; J3490; J7030

== ENCOUNTER 2017-01-27 12:10 | Inpatient (IN) | payer MEDICARE ==
[2017-01-27] MEDS ORDERED: LIDOCAINE 0.5% INJ-PF (5 MG/ML) 50 ML SDV INFIL ONE (13:06)
--- NOTE | 2017-01-27 13:29 | ER Document Report ---
ED General - General Chief Complaint: Headache >24 hrs old Stated Complaint: HEADACHE Time Seen by Provider: 01/27/17 12:55 Notes: 66-year-old female presents with ongoing headache posterior constant severe for 1-1/2 weeks ever since she had a fall. She has also been having intermittent incoordination issues on both sides and speech difficulties. This is her third ED visit. She was seen yesterday had a normal CT, labs and MRI. She states that when she was discharge she still had a headache. She denies fever chills but has had some nausea and vomiting and had not taken any of her morning meds. She has a long history of chronic pain and is on multiple pain management medications including opioids and adjunct of medicines. TRAVEL OUTSIDE OF THE [place] IN LAST 30 DAYS: No - Related Data Allergies/Adverse Reactions: ciprofloxacin [From Cipro] Allergy (Verified 01/27/17 12:18) Past Medical History - Social History Smoking Status: Unknown if Ever Smoked Family History: CVA, DM, Hypertension Patient has suicidal ideation: No Patient has homicidal ideation: No - Past Medical History Cardiac Medical History: Reports: Hx Hypercholesterolemia Pulmonary Medical History: Reports: Hx COPD Endocrine Medical History: Reports: Hx Diabetes Mellitus Type 2 Renal/ Medical History: Denies: Hx Peritoneal Dialysis Psychiatric Medical History: Reports: Hx Depression Past Surgical History: Reports: Hx Appendectomy, Hx Cholecystectomy, Hx Hysterectomy - Immunizations Hx Pneumococcal Vaccination: 12/26/14 Review of Systems - Review of Systems Notes: REVIEW OF SYSTEMS GEN: Weakness ENT: Denies sore throat, nasal discharge, ear pain EYES: Denies blurry vision, eye pain, discharge CV: Denies chest pain, palpitations, edema RESP: Denies cough, shortness of breath, wheezing GI: Nausea and p.o. intolerance MSK: Denies joint pain/swelling, edema, SKIN: Denies rash, skin lesions LYMPH: Denies swollen glands/lymph nodes NEURO: Headache and neurologic symptoms as above PSYCH: Denies depression, suicidal or homicidal ideation PHYSICAL EXAMINATION General: No acute distress, well-nourished obese. Chronically ill-appearing. Head: Atraumatic, normocephalic ENT: Mouth normal, oropharynx moist, no exudates or tonsillar enlargement Eyes: Conjunctiva normal, pupils equal, lids normal Neck: No JVD, supple, no guarding CVS: Normal rate, regular rhythm, no murmurs Resp: No resp distress, equal and normal breath sounds bilaterally GI: Nondistended, soft, no tenderness to palpation, no rebound or guarding Ext: No deformities, no edema, normal range of motion in upper and lower ext Back: No CVA or midline TTP Skin: No rash, warm Lymphatic: No lymphadeopathy noted Neuro: Awake, alert. Face symmetric. GCS 15. Stuttering speech. Hyperalgesia to the face. Symmetric movement. Slightly weak on the right side secondary to pain, lower extremity. Physical Exam - Vital signs Vitals: Pulse Resp BP Pulse Ox 84 19 122/89 H 98 01/27/17 12:18 01/27/17 12:18 01/27/17 12:18 01/27/17 12:18 Course - Re-evaluation Re-evalutation: 01/27/17 13:28 Patient with chronic pain presents with ongoing headache and neurologic symptoms. She had an MRI yesterday that was normal. Her differential includes migraine, complicated migraine, but also [employer] infection. I doubt bacterial meningitis given the chronicity however viral infection and encephalitis is still on the list. She was offered LP, and I think she is too confused to consent. Her twin sister at the bedside consents. We will get basic labs pursue lumbar puncture and eventually will admit for further neurologic workup. 01/27/17 15:07 Normal. LP unsuccessful. Admitted, accepted by Dr. Bledsoe - Vital Signs Vital signs: Temp Pulse Resp BP Pulse Ox 84 19 122/89 H 98 01/27/17 12:18 01/27/17 12:18 01/27/17 12:18 01/27/17 12:18 - Laboratory Result Diagrams: 01/27/17 14:00 01/27/17 14:00 Laboratory results interpreted by me: 01/27/17 01/27/17 14:00 14:00 WBC 12.1 H Plt Count 594 H Absolute Neutrophils 9.3 H Potassium 3.5 L Chloride 97 L BUN 22 H Calcium 10.3 H Procedures - Lumbar Puncture Lumbar puncture Time completed: 15:10 Consent obtained: Yes Lumbar puncture pre-procedure: Sterile PPE donned, Betadine prep applied Patient position: Sitting Needle size: 18 Lumbar puncture location: L4-L5 Anesthetic type: 1% Lidocaine mL's of anesthetic: 10 Number of attempts: 2 Complications: No Notes: 01/27/17 15:07 could not obtain CSF. pt did not acosta rpt attempts. Discharge - Discharge Clinical Impression: Headache, migraine, intractable Qualifiers: Migraine type: unspecified Status migrainosus presence: without status migrainosus Qualified Code(s): G43.919 - Migraine, unspecified, intractable, without status migrainosus Condition: Fair Disposition: ADMITTED INPATIENT Admitting Provider: Hospitalist Unit Admitted: Telemetry
[2017-01-27] MEDS ORDERED: MORPHINE SULFATE IR 30 MG TABLET PO ONE (13:47)
[2017-01-27] MEDS ORDERED: DEXAMETHASONE SOD PHOS INJ 10 MG/1 ML VIAL IV ONE (14:06)
[2017-01-27] MEDS ORDERED: DIPHENHYDRAMINE HCL 50 MG/ML VIAL IV ONE (14:06)
[2017-01-27] MEDS ORDERED: METOCLOPRAMIDE HCL INJ/PF 10 MG/2 ML SDV IV ONE (14:06)
[2017-01-27 14:19] LABS: ABSOLUTE LYMPHOCYTES (AUTO) 1.9 10^3/uL (0.5-4.7); ABSOLUTE MONOCYTES (AUTO) 0.8 10^3/uL (0.1-1.4); ABSOLUTE NEUT (AUTO) 9.3 10^3/uL (1.7-8.2); BASOPHILS % (AUTO) 0.1 % (0-2); HEMATOCRIT 36.3 % (36.0-47.0); HEMOGLOBIN 12.7 g/dL (12.0-15.5); HGB HCT DIFFERENCE 1.8; LYMPHOCYTES % (AUTO) 15.9 % (13-45); MEAN CORPUSCULAR HGB CONC 34.9 g/dL (32.0-36.0); MEAN CORPUSCULAR VOLUME 89 fl (80-97); MONOCYTES % (AUTO) 6.6 % (3-13); RED BLOOD COUNT 4.08 10^6/uL (3.72-5.28); RED CELL DISTRIBUTION WIDTH 13.4 % (11.5-14.0); SEGMENTED NEUTROPHILS % (AUTO) 77.4 % (42-78); WHITE BLOOD COUNT 12.1 10^3/uL (4.0-10.5)
[2017-01-27 14:41] LABS: ANION GAP 15 (5-19); BLOOD UREA NITROGEN 22 mg/dL (7-20); CALCIUM 10.3 mg/dL (8.4-10.2); CARBON DIOXIDE 27 mmol/L (22-30); CHLORIDE 97 mmol/L (98-107); CREATININE RESULT 0.53 mg/dL (0.52-1.25); GLUCOSE 101 mg/dL (75-110); POTASSIUM 3.5 mmol/L (3.6-5.0); SODIUM 138.9 mmol/L (137-145)
[2017-01-27] MEDS ORDERED: DEXTROSE 40% GEL 15 GM TUBE PO PRN ×2 (17:56)
[2017-01-27] MEDS ORDERED: DEXTROSE 50%-WATER 25 GM/50 ML DISP.SYRIN IV PRN ×2 (17:56)
[2017-01-27] MEDS ORDERED: GLUCAGON,HUMAN RECOMB 1 MG INJ IM PRN (17:56)
[2017-01-27] MEDS ORDERED: INSULIN LISPRO 100 UNIT/ML 3 ML VIAL SUBCUT PRN (17:56)
[2017-01-27] MEDS: PROMETHAZINE HCL INJ 25 MG/1 ML VIAL IV PRN (18:26)
[2017-01-27] MEDS: RINGERS SOLUTION,LACTATED 1,000 ML with POTASSIUM CHLORIDE 40 MEQ IV PRN ×2 (20:47)
[2017-01-27] MEDS: DILTIAZEM HCL 30 MG TABLET PO SCH (21:16)
[2017-01-27] MEDS: MORPHINE SULFATE SR 30 MG TABLET PO SCH (21:16)
[2017-01-27] MEDS: ATORVASTATIN CALCIUM 40 MG TABLET PO SCH (21:16)
[2017-01-27] MEDS: GABAPENTIN 400 MG CAPSULE PO SCH (21:16)
[2017-01-27] MEDS: AMITRIPTYLINE HCL 25 MG TABLET PO SCH (21:17)
[2017-01-27] MEDS: FLUOXETINE HCL 20 MG CAPSULE PO SCH (21:17)
[2017-01-27] MEDS: OLANZAPINE 5 MG TABLET PO SCH (21:17)
[2017-01-28] MEDS ORDERED: ALBUTEROL SULFATE HFA (90 MCG/PUFF) 8 GM MDI (1 MDI/ER DISP) IH PRN (05:24)
[2017-01-28 05:28] LABS: ABSOLUTE LYMPHOCYTES (AUTO) 1.4 10^3/uL (0.5-4.7); ABSOLUTE MONOCYTES (AUTO) 0.6 10^3/uL (0.1-1.4); ABSOLUTE NEUT (AUTO) 6.3 10^3/uL (1.7-8.2); BASOPHILS % (AUTO) 0.1 % (0-2); HEMATOCRIT 33.4 % (36.0-47.0); HEMOGLOBIN 11.4 g/dL (12.0-15.5); HGB HCT DIFFERENCE 0.8; LYMPHOCYTES % (AUTO) 17.2 % (13-45); MEAN CORPUSCULAR HEMOGLOBIN 30.7 pg (27.0-33.4); MEAN CORPUSCULAR HGB CONC 34.2 g/dL (32.0-36.0); MEAN CORPUSCULAR VOLUME 90 fl (80-97); MONOCYTES % (AUTO) 6.7 % (3-13); RED BLOOD COUNT 3.72 10^6/uL (3.72-5.28); RED CELL DISTRIBUTION WIDTH 13.3 % (11.5-14.0); WHITE BLOOD COUNT 8.3 10^3/uL (4.0-10.5)
[2017-01-28 05:56] LABS: ANION GAP 9 (5-19); BLOOD UREA NITROGEN 22 mg/dL (7-20); CALCIUM 9.7 mg/dL (8.4-10.2); CARBON DIOXIDE 29 mmol/L (22-30); CHLORIDE 102 mmol/L (98-107); CREATININE RESULT 0.59 mg/dL (0.52-1.25); GLUCOSE 111 mg/dL (75-110); SODIUM 140.3 mmol/L (137-145)
[2017-01-28 05:59] LABS: C-REACTIVE PROTEIN < 5.0 mg/L (<10.0)
[2017-01-28 06:06] LABS: POTASSIUM 4.6 mmol/L (3.6-5.0)
[2017-01-28 06:10] LABS: ERYTHROCYTE SEDIMENTATION RATE 70 mm/hr (0-30)
[2017-01-28] MEDS: MORPHINE SULFATE SR 30 MG TABLET PO SCH ×3 (06:10→22:12)
[2017-01-28] MEDS: RINGERS SOLUTION,LACTATED 1,000 ML with POTASSIUM CHLORIDE 40 MEQ IV PRN ×2 (06:10)
[2017-01-28] MEDS: GABAPENTIN 400 MG CAPSULE PO SCH ×3 (06:10→22:12)
[2017-01-28] MEDS: DILTIAZEM HCL 30 MG TABLET PO SCH ×3 (06:10→22:12)
[2017-01-28] MEDS ORDERED: ALBUTEROL SULFATE HFA (90 MCG/PUFF) 200 PUFF/8.5 GM MDI IH PRN (07:11)
[2017-01-28] MEDS: METOPROLOL SUCCINATE 25 MG TAB.SR.24H PO SCH (10:17)
[2017-01-28] MEDS: ASPIRIN 81 MG TABLET, CHEWABLE PO SCH (11:44)
[2017-01-28] MEDS: OXYMORPHONE HCL 5 MG PO PRN (11:50)
[2017-01-28 12:06] LABS: APPEARANCE ALL TUBES CLEAR
[2017-01-28 12:08] LABS: RBC DILUENT USED NONE USED; RBC DILUTION FACTOR 1; RBC SIDE 1 7; RBC SIDE 2 5; TOTAL RBC SQUARES COUNTED 225
[2017-01-28 12:09] LABS: WHITE BLOOD CELL,CSF 483 /uL (0-5)
[2017-01-28] MEDS ORDERED: VANCOMYCIN HCL 0 MG in DEXTROSE 5%-WATER 250 ML IV NR (13:45)
[2017-01-28 14:58] LABS: GLUCOSE,CSF 68 mg/dL (40-70)
[2017-01-28] MEDS ORDERED: CEFTRIAXONE 2 GM/D5W RTU 2 GM/50 ML RTUPB IV SCH (15:00)
--- NOTE | 2017-01-28 15:25 | RADIOLOGY REPORT (SQ) ---
EXAM DESCRIPTION: LUMBAR PUNCTURE; FLUORO/NEEDLE PLACEMENT/SPINE COMPLETED DATE/TIME: 01/28/2017 11:16 am REASON FOR STUDY: Headache; HEADACHE COMPARISON: MRI brain 01/26/2017 CT brain 01/26/2017 FLUOROSCOPY TIME: 17 seconds 1 digital radiographic image saved to PACS. TECHNIQUE: Fluoroscopic guided lumbar puncture. LIMITATIONS: None. PROCEDURE: After written consent and assessment were obtained, the patient was brought into the fluo roscopy room and placed prone on the table. The patient's lower back was prepped in a sterile fashio n and an entry site was selected under live fluoroscopic guidance. The entry site was anesthetized wi th 6 mL of 1% lidocaine. A 22 gauge spinal needle was advanced through the skin and into the thecal s ac at the right paracentral L3-4 level. After approximately 8 ml was drained, the needle was removed and a sterile bandage was placed of the site. Specimens were sent to the lab for testing. A fluoro scopic spot image was saved to PACS confirming level access. FINDINGS: Clear CSF, normal opening pressure 15 cm of water IMPRESSION: Lumbar puncture under fluoroscopy. No immediate complication. COMMENT: Patient medication list reviewed: Yes- Quality ID# [id number]:Eligible professional attests to doc umenting in the medical record they obtained, updated, or reviewed the patient's current medications. . Quality ID [id number]: Final reports for procedures using fluoroscopy that document radiation exposure beatrice alana, or exposure time and number of fluorographic images (if radiation exposure indices are not avail able) TECHNICAL DOCUMENTATION: JOB ID: [id number] [email or web address]- All Rights Reserved
[2017-01-28] MEDS: VANCOMYCIN HCL 1,250 MG in DEXTROSE 5%-WATER 250 ML IV SCH (16:04)
--- NOTE | 2017-01-28 16:44 | PDOC PROGRESS REPORT ---
Subjective Progress Note for:: 01/28/17 Subjective:: Patient relates that she feels some better but still having the headache. Nurse notifies that neurologist had seen this patient in the past and zita see patient only if something positive shows up in the spinal tap. Physical Exam Vital Signs: Temp Pulse Resp BP Pulse Ox 97.7 F 61 21 H 140/65 H 99 01/28/17 04:00 01/28/17 04:00 01/28/17 04:00 01/28/17 04:00 01/28/17 04:00 Intake & Output 01/27/17 01/28/17 01/29/17 06:59 06:59 06:59 Intake Total 840 Output Total 1000 Balance -160 Weight 86.2 kg General appearance: PRESENT: no acute distress, cooperative, morbidly obese, obese Head exam: PRESENT: atraumatic, normocephalic Eye exam: PRESENT: conjunctiva pink, EOMI, PERRLA. ABSENT: nystagmus Ear exam: PRESENT: normal external ear exam Mouth exam: PRESENT: moist, neck supple Neck exam: PRESENT: full ROM, JVD, tenderness Respiratory exam: PRESENT: clear to auscultation thai. ABSENT: chest wall tenderness Cardiovascular exam: PRESENT: RRR. ABSENT: diastolic murmur, systolic murmur Vascular exam: PRESENT: normal capillary refill GI/Abdominal exam: PRESENT: normal bowel sounds. ABSENT: guarding, rebound Extremities exam: PRESENT: full ROM. ABSENT: pedal edema Neurological exam: PRESENT: alert, oriented to person, oriented to place, oriented to time Results Laboratory Results: 01/28/17 04:04 01/28/17 04:04 01/28/17 01/28/17 04:04 04:04 WBC 8.3 RBC 3.72 Hgb 11.4 L Hct 33.4 L MCV 90 MCH 30.7 MCHC 34.2 RDW 13.3 Plt Count 484 H Seg Neutrophils % 76.0 Lymphocytes % 17.2 Monocytes % 6.7 Eosinophils % 0.0 Basophils % 0.1 Absolute Neutrophils 6.3 Absolute Lymphocytes 1.4 Absolute Monocytes 0.6 Absolute Eosinophils 0.0 Absolute Basophils 0.0 Sodium 140.3 Potassium 4.6 D Chloride 102 Carbon Dioxide 29 Anion Gap 9 BUN 22 H Creatinine 0.59 Est GFR ( Amer) > 60 Est GFR (Non-Af Amer) > 60 Glucose 111 H Calcium 9.7 Magnesium 2.0 C-Reactive Protein < 5.0 Assessment & Plan - Diagnosis (1) Hypokalemia Is this a current diagnosis for this admission?: Yes Plan: Likely due to diuretic use and loss. Replace intravenous fluids. Trend. (2) HTN (hypertension) Qualifiers: Hypertension type: essential hypertension Qualified Code(s): I10 - Essential (primary) hypertension Plan: Discontinue HCT since mildy dehydrated. Continue low dose diltiazem and hopefully will help with headache. (3) Headache, migraine, intractable Qualifiers: Migraine type: without aura Status migrainosus presence: without status migrainosus Qualified Code(s): G43.019 - Migraine without aura, intractable, without status migrainosus Is this a current diagnosis for this admission?: Yes Plan: Neurologist reported to nurse that he had seen patient back in May and will see patient if spinal tap abnormal. Preliminary report of spinal tap more ocnistent with possible encephalitis. Will order Herpes type I,II and enterovirus PCR. Will start acyclovir and cover with rocephin and vancomycin since initially there was a concenrn of gpc in the smear but official report came back negative. (4) Confusion Is this a current diagnosis for this admission?: Yes Plan: better today. (5) Diabetes mellitus type 2 in obese Is this a current diagnosis for this admission?: Yes Plan: To place on sliding scale and bedside glucose AC and HS - Time Time Spent with patient: 15-24 minutes Medications reviewed and adjusted accordingly: Yes Anticipated discharge: Home - Inpatient Certification Based on my medical assessment, after consideration of the patient's comorbidities, presenting symptoms, or acuity I expect that the services needed warrant INPATIENT care.: Yes I certify that my determination is in accordance with my understanding of Medicare's requirements for reasonable and necessary INPATIENT services [42 CFR 412.3e].: Yes Medical Necessity: Need For IV Fluids, Need for IV Antibiotics
[2017-01-28] MEDS: AMITRIPTYLINE HCL 25 MG TABLET PO SCH (22:12)
[2017-01-28] MEDS: FLUOXETINE HCL 20 MG CAPSULE PO SCH (22:12)
[2017-01-28] MEDS: OLANZAPINE 5 MG TABLET PO SCH (22:12)
[2017-01-28] MEDS: ATORVASTATIN CALCIUM 40 MG TABLET PO SCH (22:12)
[2017-01-28] MEDS: ACYCLOVIR SODIUM 750 MG in NORMAL SALINE 250 ML IV SCH (22:12)
[2017-01-29] MEDS: VANCOMYCIN HCL 1,250 MG in DEXTROSE 5%-WATER 250 ML IV SCH ×2 (04:21→18:05)
[2017-01-29] MEDS: ACYCLOVIR SODIUM 750 MG in NORMAL SALINE 250 ML IV SCH ×3 (06:38→21:35)
[2017-01-29] MEDS: GABAPENTIN 400 MG CAPSULE PO SCH ×3 (06:38→21:35)
[2017-01-29] MEDS: MORPHINE SULFATE SR 30 MG TABLET PO SCH ×3 (06:38→21:34)
[2017-01-29] MEDS: DILTIAZEM HCL 30 MG TABLET PO SCH (06:38)
[2017-01-29] MEDS: OXYMORPHONE HCL 5 MG PO PRN (06:42)
[2017-01-29] MEDS: ASPIRIN 81 MG TABLET, CHEWABLE PO SCH (12:00)
[2017-01-29] MEDS: METOPROLOL SUCCINATE 25 MG TAB.SR.24H PO SCH (12:01)
[2017-01-29] MEDS ORDERED: BUDESONIDE NEB 0.5 MG/2 ML AMPUL NEB ONE (12:30)
[2017-01-29] MEDS: IPRATROPIUM/ALBUTEROL 0.5-2.5 MG/3 ML AMPUL NEB PRN ×2 (13:38→19:43)
--- NOTE | 2017-01-29 14:03 | PDOC PROGRESS REPORT ---
Subjective Progress Note for:: 01/29/17 Subjective:: Patient relates that the headache feels better today. She has been having non productive cough since early in the morning. Also complains of slight tremor to her right hand. Confusion comes and goes. Her sister is at bedside and has been updated. She also admits that the confusion has been going on for more than a year but that the headache is new. Physical Exam Vital Signs: Temp Pulse Resp BP Pulse Ox 97.5 F 53 L 16 111/57 L 95 01/29/17 00:53 01/29/17 00:53 01/29/17 00:53 01/29/17 00:53 01/29/17 00:53 Intake & Output 01/28/17 01/29/17 01/30/17 06:59 06:59 05:59 Intake Total 840 310 Output Total 1000 1700 Balance -160 -1390 Weight 86.2 kg General appearance: PRESENT: no acute distress, cooperative, obese Head exam: PRESENT: atraumatic, normocephalic Eye exam: PRESENT: EOMI, PERRLA Ear exam: PRESENT: normal external ear exam Neck exam: PRESENT: full ROM, tenderness. ABSENT: JVD Respiratory exam: PRESENT: clear to auscultation thai Cardiovascular exam: PRESENT: RRR. ABSENT: diastolic murmur, systolic murmur Vascular exam: PRESENT: normal capillary refill GI/Abdominal exam: PRESENT: normal bowel sounds, soft. ABSENT: tenderness Extremities exam: PRESENT: full ROM. ABSENT: pedal edema, tenderness Musculoskeletal exam: PRESENT: ambulatory, full ROM Neurological exam: PRESENT: alert, awake, oriented to person, oriented to place Psychiatric exam: PRESENT: appropriate affect, normal mood Skin exam: PRESENT: intact, normal color Results Laboratory Results: 01/28/17 04:04 01/28/17 04:04 01/28/17 01/28/17 10:57 10:57 Fluid Tube Number 3 CSF Volume 8.0 CSF Appearance CLEAR CSF Color COLORLESS CSF WBC 483 H CSF RBC 6 CSF Glucose 68 CSF Total Protein 150 H Impressions: Guidance Fluoroscopy 01/28/17 00:00 IMPRESSION: Lumbar puncture under fluoroscopy. No immediate complication. Lumbar Puncture 01/28/17 00:00 IMPRESSION: Lumbar puncture under fluoroscopy. No immediate complication. Assessment & Plan - Diagnosis (1) Hypokalemia Is this a current diagnosis for this admission?: Yes Plan: Likely due to diuretic use and loss. Replaced. Trend. (2) HTN (hypertension) Qualifiers: Hypertension type: essential hypertension Qualified Code(s): I10 - Essential (primary) hypertension Is this a current diagnosis for this admission?: Yes Plan: Discontinue HCT since mildy dehydrated. Change to extended release cardiazem (3) Headache, migraine, intractable Qualifiers: Migraine type: without aura Status migrainosus presence: without status migrainosus Qualified Code(s): G43.019 - Migraine without aura, intractable, without status migrainosus Is this a current diagnosis for this admission?: Yes Plan: Neurologist reported to nurse that he had seen patient back in May and will see patient if spinal tap abnormal. Preliminary report of spinal tap more consistent with possible encephalitis. Herpes type I,II and enterovirus PCR ordered. Continue acyclovir, rocephin and vancomycin for now. Preliminary CSF result is negative. (4) Confusion Is this a current diagnosis for this admission?: Yes Plan: Longstanding and possibly multifactorial including vascular dementia. (5) Diabetes mellitus type 2 in obese Is this a current diagnosis for this admission?: Yes Plan: To place on sliding scale and bedside glucose AC and HS (6) Dyspnea Is this a current diagnosis for this admission?: Yes Plan: Order BNP and decrease ivf's. Start nebulizer and pulmicort neb txs. - Time Time Spent with patient: 15-24 minutes Medications reviewed and adjusted accordingly: Yes Anticipated discharge: Home Within: within 48 hours - Inpatient Certification Medical Necessity: Need for Pain Control, Need for IV Antibiotics
[2017-01-29] MEDS ORDERED: CEFTRIAXONE 2 GM/D5W RTU 2 GM/50 ML RTUPB IV ONE (15:00)
[2017-01-29] MEDS: BUDESONIDE NEB 0.5 MG/2 ML AMPUL NEB SCH (19:42)
[2017-01-29] MEDS: AMITRIPTYLINE HCL 25 MG TABLET PO SCH (21:34)
[2017-01-29] MEDS: RINGERS SOLUTION,LACTATED 1,000 ML with POTASSIUM CHLORIDE 40 MEQ IV PRN ×2 (21:35)
[2017-01-29] MEDS: FLUOXETINE HCL 20 MG CAPSULE PO SCH (21:35)
[2017-01-29] MEDS: OLANZAPINE 5 MG TABLET PO SCH (21:35)
[2017-01-29] MEDS: ATORVASTATIN CALCIUM 40 MG TABLET PO SCH (21:35)
[2017-01-30] MEDS ORDERED: CEFTRIAXONE 2 GM/D5W RTU 2 GM/50 ML RTUPB IV SCH (03:00)
[2017-01-30] MEDS: VANCOMYCIN HCL 1,250 MG in DEXTROSE 5%-WATER 250 ML IV SCH (04:46)
[2017-01-30] MEDS: GABAPENTIN 400 MG CAPSULE PO SCH ×3 (06:23→21:19)
[2017-01-30] MEDS: ACYCLOVIR SODIUM 750 MG in NORMAL SALINE 250 ML IV SCH ×3 (06:23→21:19)
[2017-01-30] MEDS: MORPHINE SULFATE SR 30 MG TABLET PO SCH ×3 (06:23→21:19)
[2017-01-30] MEDS: IPRATROPIUM/ALBUTEROL 0.5-2.5 MG/3 ML AMPUL NEB PRN ×2 (08:30→20:07)
[2017-01-30] MEDS: BUDESONIDE NEB 0.5 MG/2 ML AMPUL NEB SCH ×2 (08:30→20:06)
[2017-01-30] MEDS: METOPROLOL SUCCINATE 25 MG TAB.SR.24H PO SCH (09:55)
[2017-01-30] MEDS: DILTIAZEM HCL 120 MG CAP.SR.24H PO SCH (09:56)
[2017-01-30] MEDS: ASPIRIN 81 MG TABLET, CHEWABLE PO SCH (09:56)
--- NOTE | 2017-01-30 11:36 | RADIOLOGY REPORT (SQ) ---
EXAM DESCRIPTION: CHEST PA/LAT COMPLETED DATE/TIME: 01/30/2017 11:27 am REASON FOR STUDY: cough COMPARISON: Chest film 01/14/2017, 01/26/2017 EXAM PARAMETERS: NUMBER OF VIEWS: two views TECHNIQUE: Digital Frontal and Lateral radiographic views of the chest acquired. RADIATION DOSE: NA LIMITATIONS: none FINDINGS: LUNGS AND PLEURA: No opacities, masses or pneumothorax. No pleural effusion. MEDIASTINUM AND HILAR STRUCTURES: No masses or contour abnormalities. HEART AND VASCULAR STRUCTURES: Heart normal size. No evidence for failure. BONES: No acute findings. HARDWARE: Clips right upper quadrant post cholecystectomy. OTHER: No other significant finding. IMPRESSION: NO SIGNIFICANT RADIOGRAPHIC FINDING IN THE CHEST. TECHNICAL DOCUMENTATION: JOB ID: [id number]- All Rights Reserved
[2017-01-30] MEDS ORDERED: BENZTROPINE MESYLATE INJ 2 MG/2 ML AMPULE IM ONE (12:30)
[2017-01-30] MEDS: CYCLOBENZAPRINE HCL 10 MG TABLET PO PRN (13:05)
[2017-01-30] MEDS: OXYMORPHONE HCL 5 MG PO PRN (15:08)
--- NOTE | 2017-01-30 16:03 | PDOC PROGRESS REPORT ---
Subjective Progress Note for:: 01/30/17 Subjective:: Patient relates that the headache is worse when coughing. States that had been having some mucous coming out. Physical Exam Vital Signs: Temp Pulse Resp BP Pulse Ox 97.5 F 72 17 106/54 L 94 01/30/17 00:16 01/30/17 00:16 01/30/17 00:16 01/30/17 00:16 01/30/17 00:16 Intake & Output 01/29/17 01/30/17 01/31/17 07:59 06:59 06:59 Intake Total Output Total Balance General appearance: PRESENT: no acute distress, cooperative, obese Head exam: PRESENT: atraumatic, normocephalic Eye exam: PRESENT: EOMI, PERRLA Ear exam: PRESENT: normal external ear exam Mouth exam: PRESENT: moist, neck supple Neck exam: PRESENT: full ROM. ABSENT: JVD, meningismus, tenderness Respiratory exam: PRESENT: clear to auscultation thai Cardiovascular exam: PRESENT: RRR. ABSENT: diastolic murmur, gallop, systolic murmur Vascular exam: PRESENT: normal capillary refill GI/Abdominal exam: PRESENT: normal bowel sounds. ABSENT: guarding, tenderness Extremities exam: ABSENT: joint swelling, pedal edema Musculoskeletal exam: PRESENT: full ROM. ABSENT: tenderness Neurological exam: PRESENT: alert, oriented to person, oriented to place, oriented to time, other - right hand tremor noted Psychiatric exam: PRESENT: appropriate affect, normal mood Results Impressions: Guidance Fluoroscopy 01/28/17 00:00 IMPRESSION: Lumbar puncture under fluoroscopy. No immediate complication. Lumbar Puncture 01/28/17 00:00 IMPRESSION: Lumbar puncture under fluoroscopy. No immediate complication. Assessment & Plan - Diagnosis (1) Hypokalemia Is this a current diagnosis for this admission?: Yes Plan: Likely due to diuretic use and loss. Replaced. Trend. (2) HTN (hypertension) Qualifiers: Hypertension type: essential hypertension Qualified Code(s): I10 - Essential (primary) hypertension Is this a current diagnosis for this admission?: Yes Plan: Continue cardiazem extended release (3) Headache, migraine, intractable Qualifiers: Migraine type: without aura Status migrainosus presence: without status migrainosus Qualified Code(s): G43.019 - Migraine without aura, intractable, without status migrainosus Is this a current diagnosis for this admission?: Yes Plan: Neurologist reported to nurse that he had seen patient back in May and was to see patient if spinal tap was abnormal. Preliminary report of spinal tap more consistent with possible encephalitis. Herpes type I,II and enterovirus PCR ordered. Continue acyclovir. Discontinue rocephin and vancomycin for now. Preliminary CSF result is negative. Patient made aware headache may persist for 4-6 weeks. (4) Confusion Is this a current diagnosis for this admission?: Yes Plan: Longstanding and possibly multifactorial including vascular dementia. (5) Diabetes mellitus type 2 in obese Is this a current diagnosis for this admission?: Yes Plan: Continue sliding scale and bedside glucose AC and HS (6) Dyspnea Is this a current diagnosis for this admission?: Yes Plan: due to COPD. Order cxr and nehemiah paul. Add zithromax. (7) Encephalitis Is this a current diagnosis for this admission?: Yes Plan: Supportive. (8) Tremor due to multiple drugs Is this a current diagnosis for this admission?: Yes Plan: Discontinue zyprexa and order cogentin IM x 1 - Time Time Spent with patient: 15-24 minutes Medications reviewed and adjusted accordingly: Yes Anticipated discharge: Home Within: within 24 hours - Inpatient Certification Medical Necessity: Need for Pain Control, Need for IV Antibiotics
[2017-01-30 16:16] LABS: CREATININE RESULT 0.69 mg/dL (0.52-1.25)
[2017-01-30] MEDS: AZITHROMYCIN 250 MG TABLET PO SCH (16:47)
[2017-01-30] MEDS: RINGERS SOLUTION,LACTATED 1,000 ML with POTASSIUM CHLORIDE 40 MEQ IV PRN ×2 (18:56)
[2017-01-30] MEDS: BENZONATATE 100 MG CAPSULE PO PRN (19:26)
[2017-01-30] MEDS: ATORVASTATIN CALCIUM 40 MG TABLET PO SCH (21:19)
[2017-01-30] MEDS: FLUOXETINE HCL 20 MG CAPSULE PO SCH (21:19)
[2017-01-30] MEDS: AMITRIPTYLINE HCL 25 MG TABLET PO SCH (21:19)
[2017-01-31] MEDS: GABAPENTIN 400 MG CAPSULE PO SCH ×3 (06:11→22:21)
[2017-01-31] MEDS: MORPHINE SULFATE SR 30 MG TABLET PO SCH ×3 (06:12→22:20)
[2017-01-31] MEDS: ACYCLOVIR SODIUM 750 MG in NORMAL SALINE 250 ML IV SCH (06:13)
[2017-01-31] MEDS: IPRATROPIUM/ALBUTEROL 0.5-2.5 MG/3 ML AMPUL NEB PRN ×2 (08:19→19:44)
[2017-01-31] MEDS: BUDESONIDE NEB 0.5 MG/2 ML AMPUL NEB SCH ×2 (08:20→19:43)
[2017-01-31] MEDS: METOPROLOL SUCCINATE 25 MG TAB.SR.24H PO SCH (08:44)
[2017-01-31] MEDS: DILTIAZEM HCL 120 MG CAP.SR.24H PO SCH (08:45)
[2017-01-31] MEDS: ASPIRIN 81 MG TABLET, CHEWABLE PO SCH (08:45)
--- NOTE | 2017-01-31 11:16 | PDOC H&P ---
History of Present Illness Admission Date/PCP: 01/27/17 15:48 Patient complains of: Headache for a couple of days History of Present Illness: LA PELLETIER is a 66 year old female who presented to ED accompanied by her twin sister complaining of headache localized to her forehead. Patient stated that around last week she fell backwards after tripping and hit the back of her head. There was no LOC. It took her 8 days before prompting to come to ED. She was also confused. Patient was admitted but not seen by neurologist since not available at that time. Has not been doing well ever since. Since was having a lot of pain came to ED on Jan 26 and had extensive work up. She opted to go home. Returned back today since wanted some answers regarding the nature of her headache. ED physician attempted spinal tap but unable. Our service was consulted. We verified that there was neurology support at this facility since major concern was to be evaluated by specialist which was lacking recently. Patient also complains of nausea, vomiting, weakness. Denies fever or neck pain. Past Medical History Cardiac Medical History: Reports: Hyperlipidema, Hypertension Pulmonary Medical History: Reports: Chronic Obstructive Pulmonary Disease (COPD) Endocrine Medical History: Reports: Diabetes Mellitus Type 2 Musculoskeltal Medical History: Reports: Other - chronic pain on opioids Psychiatric Medical History: Reports: Depression Past Surgical History Past Surgical History: Reports: Appendectomy, Cholecystectomy, Hysterectomy Social History Information Source: Patient Lives with: Family Smoking Status: Unknown if Ever Smoked Frequency of Alcohol Use: Rare Hx Recreational Drug Use: No Drugs: None Hx Prescription Drug Abuse: No - Advance Directive Resuscitation Status: Full Code Family History Family History: CVA, DM, Hypertension Parental Family History Reviewed: Yes Children Family History Reviewed: Yes Sibling(s) Family History Reviewed.: Yes Medication/Allergy Home Medications: Albuterol Sulfate [Proair HFA] 2 puff IH Q6HP PRN 01/27/17 Amitriptyline HCl [Elavil 25 mg Tablet] 25 mg PO QHS 01/27/17 Aspirin [Aspirin 81 mg Chewable Tablet] 81 mg PO DAILY 01/27/17 Atorvastatin Calcium [Lipitor 40 mg Tablet] 40 mg PO QHS 01/27/17 Cyclobenzaprine HCl [Flexeril 10 mg Tablet] 10 mg PO Q8HP PRN 01/27/17 Fluoxetine HCl [Prozac] 40 mg PO QHS 01/27/17 Gabapentin [Neurontin] 1,200 mg PO Q8 01/27/17 Hydrochlorothiazide [Hydrodiuril 25 mg Tablet] 25 mg PO DAILY 01/27/17 Ibuprofen [Motrin 600 mg Tablet] 600 mg PO Q12HP PRN 01/27/17 Metformin HCl [Glucophage 500 mg Tablet] 500 mg PO BIDACBS 01/27/17 Metoprolol Succinate [Toprol Xl 25 mg Tab.sr] 25 mg PO DAILY 01/27/17 Morphine Sulfate [Morphine Sulfate ER] 30 mg PO Q8 01/27/17 Ondansetron [Zofran Odt] 8 mg PO Q8HP PRN 01/27/17 Oxymorphone HCl [Opana] 5 mg PO Q8HP PRN 01/27/17 Tramadol HCl [Ultram 50 mg Tablet] 50 mg PO 5XDP PRN 01/27/17 Allergies/Adverse Reactions: ciprofloxacin [From Cipro] Allergy (Verified 01/27/17 12:18) Review of Systems Constitutional: PRESENT: chills, headache(s), weakness. ABSENT: fever(s) Eyes: ABSENT: visual disturbances Ears: ABSENT: hearing changes Nose, Mouth, and Throat: PRESENT: headache(s) Cardiovascular: ABSENT: chest pain, dyspnea on exertion Respiratory: ABSENT: cough, dyspnea Gastrointestinal: PRESENT: nausea, vomiting. ABSENT: abdominal pain Musculoskeletal: ABSENT: muscle weakness Neurological: PRESENT: confusion, dizziness. ABSENT: abnormal gait Psychiatric: PRESENT: depression Physical Exam Vital Signs: Temp Pulse Resp BP Pulse Ox 84 19 122/89 H 98 01/27/17 12:18 01/27/17 12:18 01/27/17 12:18 01/27/17 12:18 General appearance: PRESENT: cooperative, mild distress Head exam: PRESENT: atraumatic, normocephalic Eye exam: PRESENT: conjunctiva pink, EOMI, PERRLA. ABSENT: nystagmus Ear exam: PRESENT: normal external ear exam Mouth exam: PRESENT: dry mucosa, neck supple Neck exam: PRESENT: full ROM. ABSENT: JVD, lymphadenopathy, meningismus, tenderness Respiratory exam: PRESENT: clear to auscultation thai. ABSENT: chest wall tenderness Cardiovascular exam: PRESENT: RRR. ABSENT: diastolic murmur, systolic murmur Vascular exam: PRESENT: normal capillary refill GI/Abdominal exam: PRESENT: normal bowel sounds, soft. ABSENT: guarding, organolmegaly Rectal exam: PRESENT: deferred Extremities exam: PRESENT: full ROM. ABSENT: pedal edema Musculoskeletal exam: PRESENT: full ROM Neurological exam: PRESENT: alert, oriented to person, oriented to time, oriented to situation Psychiatric exam: PRESENT: anxious, depressed Assessment & Plan - Diagnosis (1) Hypokalemia Is this a current diagnosis for this admission?: Yes Plan: Likely due to diuretic use and loss. Replace intravenous fluids. Trend. (2) HTN (hypertension) Qualifiers: Hypertension type: essential hypertension Qualified Code(s): I10 - Essential (primary) hypertension Plan: Discontinue HCT since mildy dehydrated. Place on low dose diltiazem and hopefully will help with headache. (3) Headache, migraine, intractable Qualifiers: Migraine type: without aura Status migrainosus presence: without status migrainosus Qualified Code(s): G43.019 - Migraine without aura, intractable, without status migrainosus Is this a current diagnosis for this admission?: Yes Plan: Discussed with neurologist and will see patient in AM. Patient on elavil, gabapentin and opiods. Trial diltiazem. To order spinal tap however exam non consistent with infectious process. Trial of zyprexa for nausea and phenergan IV. (4) Confusion Is this a current diagnosis for this admission?: Yes Plan: Improves when redirected and calm (5) Diabetes mellitus type 2 in obese Is this a current diagnosis for this admission?: Yes Plan: To place on sliding scale and bedside glucose AC and HS - Time Time Spent: 50 to 70 Minutes Medications reviewed and adjusted accordingly: Yes Anticipated discharge: Home Within: within 48 hours - Inpatient Certification Based on my medical assessment, after consideration of the patient's comorbidities, presenting symptoms, or acuity I expect that the services needed warrant INPATIENT care.: Yes I certify that my determination is in accordance with my understanding of Medicare's requirements for reasonable and necessary INPATIENT services [42 CFR 412.3e].: Yes Medical Necessity: Failure to Improve With Outpatient Therapy, Need Close Monitoring Due to Risk of Patient Decompensation
[2017-01-31] MEDS: GUAIFENESIN 600 MG TABLET.SA PO SCH ×2 (11:26→22:20)
[2017-01-31] MEDS: BENZONATATE 100 MG CAPSULE PO PRN (16:22)
[2017-01-31] MEDS: AZITHROMYCIN 250 MG TABLET PO SCH (16:22)
--- NOTE | 2017-01-31 16:51 | PDOC PROGRESS REPORT ---
Subjective Progress Note for:: 01/31/17 Subjective:: Patient relates that the headache is worse when coughing. Continues having mucous coming out. Physical Exam Vital Signs: Temp Pulse Resp BP Pulse Ox 98.0 F 80 17 102/41 L 99 01/30/17 23:47 01/30/17 23:47 01/30/17 23:47 01/30/17 23:47 01/30/17 23:47 Intake & Output 01/30/17 01/31/17 02/01/17 06:59 06:59 06:59 Intake Total 1032 Output Total 2750 Balance -1718 Results Laboratory Results: 01/30/17 15:45 01/30/17 15:45 Creatinine 0.69 Est GFR ( Amer) > 60 Est GFR (Non-Af Amer) > 60 Impressions: Guidance Fluoroscopy 01/28/17 00:00 IMPRESSION: Lumbar puncture under fluoroscopy. No immediate complication. Lumbar Puncture 01/28/17 00:00 IMPRESSION: Lumbar puncture under fluoroscopy. No immediate complication. Chest X-Ray 01/30/17 00:00 IMPRESSION: NO SIGNIFICANT RADIOGRAPHIC FINDING IN THE CHEST. Assessment & Plan - Diagnosis (1) Hypokalemia Is this a current diagnosis for this admission?: Yes Plan: Likely due to diuretic use and loss. Replaced. Discontinue ivf's. (2) HTN (hypertension) Qualifiers: Hypertension type: essential hypertension Qualified Code(s): I10 - Essential (primary) hypertension Is this a current diagnosis for this admission?: Yes Plan: Off HCT since mildy dehydrated. Continue cardiazem. (3) Headache, migraine, intractable Qualifiers: Migraine type: without aura Status migrainosus presence: without status migrainosus Qualified Code(s): G43.019 - Migraine without aura, intractable, without status migrainosus Is this a current diagnosis for this admission?: Yes Plan: Due to encephalitis. Seen by neurologist and would like for patient to follow up as outpatient. (4) Confusion Is this a current diagnosis for this admission?: Yes Plan: Improves when redirected and calm. Appears returned back when headache started. (5) Diabetes mellitus type 2 in obese Is this a current diagnosis for this admission?: Yes Plan: To place on sliding scale and bedside glucose AC and HS (6) Dyspnea Is this a current diagnosis for this admission?: Yes Plan: Due to COPD. Continue present tx and will add mucinex. (7) Encephalitis Is this a current diagnosis for this admission?: Yes Plan: Supportive. Discontinue acyclovir. (8) Tremor due to multiple drugs Is this a current diagnosis for this admission?: Yes Plan: Order PT/OT for evaluation for rehab. Appears transitional care nurse cannot take care of her at home since unsteady. Consult discharge planning for rehab. - Time Time Spent with patient: 15-24 minutes Medications reviewed and adjusted accordingly: Yes Anticipated discharge: Acute Rehab Within: within 48 hours - Inpatient Certification Based on my medical assessment, after consideration of the patient's comorbidities, presenting symptoms, or acuity I expect that the services needed warrant INPATIENT care.: Yes I certify that my determination is in accordance with my understanding of Medicare's requirements for reasonable and necessary INPATIENT services [42 CFR 412.3e].: Yes Medical Necessity: Need for Pain Control, Risk of Complication if Not Cared For in Hospital
[2017-01-31] MEDS: OXYMORPHONE HCL 5 MG PO PRN (17:12)
[2017-01-31] MEDS: ATORVASTATIN CALCIUM 40 MG TABLET PO SCH (22:20)
[2017-01-31] MEDS: AMITRIPTYLINE HCL 25 MG TABLET PO SCH (22:20)
[2017-01-31] MEDS: FLUOXETINE HCL 20 MG CAPSULE PO SCH (22:21)
[2017-02-01] MEDS: MORPHINE SULFATE SR 30 MG TABLET PO SCH ×2 (05:54→13:57)
[2017-02-01] MEDS: GABAPENTIN 400 MG CAPSULE PO SCH ×2 (05:54→13:58)
[2017-02-01] MEDS: BUDESONIDE NEB 0.5 MG/2 ML AMPUL NEB SCH (08:00)
[2017-02-01] MEDS: IPRATROPIUM/ALBUTEROL 0.5-2.5 MG/3 ML AMPUL NEB PRN (08:00)
[2017-02-01] MEDS: ASPIRIN 81 MG TABLET, CHEWABLE PO SCH (11:34)
[2017-02-01] MEDS: GUAIFENESIN 600 MG TABLET.SA PO SCH (11:34)
[2017-02-01] MEDS: METOPROLOL SUCCINATE 25 MG TAB.SR.24H PO SCH (11:35)
[2017-02-01] MEDS: DILTIAZEM HCL 120 MG CAP.SR.24H PO SCH (11:35)
[2017-02-01] MEDS: OXYMORPHONE HCL 5 MG PO PRN (11:47)
[2017-02-01] MEDS: CYCLOBENZAPRINE HCL 10 MG TABLET PO PRN (11:48)
[2017-02-01] MEDS: PROMETHAZINE HCL INJ 25 MG/1 ML VIAL IV PRN (11:48)
[2017-02-01 12:14] VITALS: BP 97/70
[2017-02-02 18:36] LABS: LYME P18 AB IGG CSF Absent (.); LYME P23 AB IGG CSF Absent (.); LYME P23 AB IGM CSF Absent (.); LYME P28 AB IGG CSF Absent (.); LYME P30 AB IGG CSF Absent (.); LYME P39 AB IGG CSF Absent (.); LYME P39 AB IGM CSF Absent (.); LYME P41 AB IGG CSF Present (.); LYME P41 AB IGM CSF Absent (.); LYME P45 AB IGG CSF Absent (.); LYME P58 AB IGG CSF Absent (.); LYME P66 AB IGG CSF Absent (.); LYME P93 AB IGG CSF Absent (.)
--- NOTE | 2017-02-02 18:48 | PDOC DISCHARGE SUMMARY ---
General - Admit/Disc Date/PCP Admission Date/Primary Care Provider: 01/29/17 15:00 Discharge Date: 02/01/17 - Discharge Diagnosis (1) Hypokalemia Is this a current diagnosis for this admission?: Yes (2) HTN (hypertension) Is this a current diagnosis for this admission?: Yes (3) Headache, migraine, intractable Is this a current diagnosis for this admission?: Yes (4) Confusion Is this a current diagnosis for this admission?: Yes (5) Diabetes mellitus type 2 in obese Is this a current diagnosis for this admission?: Yes (6) Dyspnea Is this a current diagnosis for this admission?: Yes (7) Encephalitis Is this a current diagnosis for this admission?: Yes (8) Tremor due to multiple drugs Is this a current diagnosis for this admission?: Yes - Additional Information Resuscitation Status: Full Code Home Medications: Albuterol Sulfate [Proair HFA] 2 puff IH Q6HP PRN 01/27/17 Amitriptyline HCl [Elavil 25 mg Tablet] 25 mg PO QHS 01/27/17 Aspirin [Aspirin 81 mg Chewable Tablet] 81 mg PO DAILY 01/27/17 Atorvastatin Calcium [Lipitor 40 mg Tablet] 40 mg PO QHS 01/27/17 Cyclobenzaprine HCl [Flexeril 10 mg Tablet] 10 mg PO Q8HP PRN 01/27/17 Fluoxetine HCl [Prozac] 40 mg PO QHS 01/27/17 Gabapentin [Neurontin] 1,200 mg PO Q8 01/27/17 Hydrochlorothiazide [Hydrodiuril 25 mg Tablet] 25 mg PO DAILY 01/27/17 Metformin HCl [Glucophage 500 mg Tablet] 500 mg PO BIDACBS 01/27/17 Metoprolol Succinate [Toprol Xl 25 mg Tab.sr] 25 mg PO DAILY 01/27/17 Morphine Sulfate [Morphine Sulfate ER] 30 mg PO Q8 01/27/17 Ondansetron [Zofran Odt] 8 mg PO Q8HP PRN 01/27/17 Oxymorphone HCl [Opana] 5 mg PO Q8HP PRN 01/27/17 Tramadol HCl [Ultram 50 mg Tablet] 50 mg PO 5XDP PRN 01/27/17 Azithromycin [Zithromax 250 mg Tablet] 500 mg PO DAILY@1700 #7 tablet 02/01/17 Budesonide/Formoterol Fumarate [Symbicort 160-4.5 Mcg Inhaler] 10.2 gm IH BID # 1 hfa.aer.ad 02/01/17 Guaifenesin [Mucinex Sr 600 mg Tablet.sa] 600 mg PO Q12 #60 tablet.sa 02/01/17 Potassium Bicarbonate/Cit AC [Potassium 25 Meq Tab Eff] 25 meq PO DAILY #30 tablet.eff 02/01/17 History of Present Illness History of Present Illness: LA PELLETIER is a 66 year old female who presented to ED accompanied by her twin sister complaining of headache localized to her forehead. Patient stated that around mid December she fell backwards after tripping and hit the back of her head. There was no LOC. It took her 8 days before prompting to come to ED. She was also confused. Patient was admitted but not seen by neurologist since not available at that time. Had not been doing well ever since. Since was having a lot of pain came to ED on Jan 26 and had extensive work up. She opted to go home. Returned back on the day of evaluation since wanted some answers regarding the nature of her headache. ED physician attempted spinal tap but unable. Our service was consulted and patient was admitted under the hospitalist service after pursuing telephone consult with . Hospital Course Hospital Course: Lumbar puncture was performed by interventional radiology on January 27 and findings were consistent with encephalitis process. It is not worth it to mention that patient was placed on IV Rocephin, vancomycin and acyclovir until obtaining final results. Bacterial cultures were negative and vancomycin and Rocephin were discontinued. At the time of discharge viral cultures were pending. Patient was seen by neurologist who coincidentally has seen the patient a year ago and he advised patient as well as her daughter to follow-up up with him upon discharge. Headache slowly improved but on occasions with worsen as patient develop a mild exacerbation of COPD which was accompanied by cough. Patient presented with hypokalemia which was corrected through IV fluid. Patient takes HCTZ and she wishes to continue with this medication as outpatient since had been taking the medication for [address] patient on potassium chloride supplementation. Patient's sister was concerned because in her opinion patient was still not at steady in her feet. We consider the possibility of rehab. On the day of discharge patient was by herself and had a long-standing talk with the patient. We had noticed that when his twin sister was present patient was more nervous and confused. Patient was approached in this regard and she stated that her sister is very controlling. Patient also expressed that she wanted to go back home. On discharge patient was sent home with a wheeled walker. She was advised to follow-up both with her primary care provider and . Since patient had achieved maximum benefit of hospitalization stay prompted to discharge under stable condition. Physical Exam Vital Signs: Temp Pulse Resp BP Pulse Ox 98.5 F 67 16 125/64 90 L 02/01/17 07:00 02/01/17 08:05 02/01/17 08:05 02/01/17 07:00 02/01/17 08:05 Intake & Output 01/31/17 02/01/17 02/02/17 06:59 06:59 06:59 Intake Total 1032 1430 Output Total 2750 2900 Balance -1718 -1470 General appearance: PRESENT: no acute distress, cooperative, obese Head exam: PRESENT: atraumatic, normocephalic Eye exam: PRESENT: EOMI, PERRLA Ear exam: PRESENT: normal external ear exam Mouth exam: PRESENT: moist, neck supple Neck exam: ABSENT: full ROM, JVD, meningismus, tenderness, thyromegaly Respiratory exam: PRESENT: clear to auscultation thai Cardiovascular exam: PRESENT: RRR. ABSENT: diastolic murmur, systolic murmur Vascular exam: PRESENT: normal capillary refill GI/Abdominal exam: PRESENT: normal bowel sounds, soft. ABSENT: tenderness Extremities exam: ABSENT: joint swelling, pedal edema, tenderness Musculoskeletal exam: PRESENT: ambulatory Neurological exam: PRESENT: alert, oriented to person, oriented to place, oriented to time Psychiatric exam: PRESENT: appropriate affect, normal mood Results Laboratory Results: 01/30/17 15:45 Impressions: Guidance Fluoroscopy 01/28/17 00:00 IMPRESSION: Lumbar puncture under fluoroscopy. No immediate complication. Lumbar Puncture 01/28/17 00:00 IMPRESSION: Lumbar puncture under fluoroscopy. No immediate complication. Chest X-Ray 01/30/17 00:00 IMPRESSION: NO SIGNIFICANT RADIOGRAPHIC FINDING IN THE CHEST.
[2017-02-03 08:37] LABS: LYME IGG WB CSF INTERP Negative (.); LYME IGM WB CSF INTERP Negative (.)
== END 2017-02-01 17:10 | disposition home health service (06) | DRG 98 ==
LOC: ER 12:10 → EH 15:48 → INTOOBSV 15:48 → 4N 17:31 → OBSVTOIN 01-29 15:00
PROVIDERS: ADMIT Hospitalist; ATTEND Hospitalist
PROC: 009U3ZX Drainage of Spinal Canal, Percutaneous Approach, Diagnostic (ICD-10-PCS; principal; 2017-01-28)
PROC: B01B1ZZ Fluoroscopy of Spinal Cord using Low Osmolar Contrast (ICD-10-PCS; 2017-01-28)
PROC: 3E0F73Z Introduction of Anti-inflammatory into Respiratory Tract, Via Natural or Artificial Opening (ICD-10-PCS; 2017-01-29)
DX: G04.90 Encephalitis and encephalomyelitis, unspecified (principal); J44.1 Chronic obstructive pulmonary disease with (acute) exacerbation; E87.6 Hypokalemia; I10 Essential (primary) hypertension; G43.019 Migraine without aura, intractable, without status migrainosus; E11.9 Type 2 diabetes mellitus without complications; E66.9 Obesity, unspecified; Z68.31 Body mass index [BMI] 31.0-31.9, adult; G25.1 Drug-induced tremor; T50.905A Adverse effect of unspecified drugs, medicaments and biological substances, initial encounter; E78.5 Hyperlipidemia, unspecified; F32.9 Major depressive disorder, single episode, unspecified; R41.0 Disorientation, unspecified; Z88.3 Allergy status to other anti-infective agents; Z79.82 Long term (current) use of aspirin; Z79.899 Other long term (current) drug therapy; Z91.81 History of falling; Z90.49 Acquired absence of other specified parts of digestive tract; Z90.710 Acquired absence of both cervix and uterus; Z82.3 Family history of stroke; Z83.3 Family history of diabetes mellitus; Z82.49 Family history of ischemic heart disease and other diseases of the circulatory system
CPT/HCPCS: 36415; 62270; 70450; 70553; 71020; 77003; 80048; 80053; 80202; 81001; 82550; 82553; 82565; 82945; 82962; 83735; 83880; 84157; 84484; 85025; 85652; 86140; 86592; 86617; 87070; 87205; 87252; 89050; 93005; 93010; 96374; 96375; 99284; 99285; A9577; G8978-GP; G8979-GP; G8987-GO; G8988-GO; J0133; J0515; J0696; J0780; J1100; J1200; J1885; J2550; J2765; J2930; J3370; J3480; J3490; J7050; J7060; J7120; J7620

== ENCOUNTER 2018-12-13 16:19 | Inpatient (IN) | payer MEDICARE ==
--- NOTE | 2018-12-13 16:50 | ER Document Report ---
ED General - General Chief Complaint: Headache Stated Complaint: Lightheaded Time Seen by Provider: 12/13/18 16:43 Notes: Patient is a 68-year-old female who presents emergency department with complaints. She states that she feels weak, has a headache, and has had some chills. She was at the grocery store today and she was with her sister. Her sister had brought her home from the grocery store and called 911. Sister states that her symptoms are the same has when she had encephalitis before. Patient is a pain management patient. She gets epidurals for her pain management and 2 weeks ago received her medication. 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 Patient has a past medical history of a stroke, pneumonia, diabetes, depression, hypertension, and encephalitis. TRAVEL OUTSIDE OF THE [place] IN LAST 30 DAYS: No - Related Data Allergies/Adverse Reactions: ciprofloxacin [From Cipro] Allergy (Verified 01/27/17 12:18) Past Medical History - Social History Smoking Status: Unknown if Ever Smoked Family History: CVA, DM, Hypertension - Past Medical History Cardiac Medical History: Reports: Hx Hypercholesterolemia, Hx Hypertension Pulmonary Medical History: Reports: Hx COPD Endocrine Medical History: Reports: Hx Diabetes Mellitus Type 2 Renal/ Medical History: Denies: Hx Peritoneal Dialysis Psychiatric Medical History: Reports: Hx Depression Past Surgical History: Reports: Hx Appendectomy, Hx Cholecystectomy, Hx Hysterectomy - Immunizations Hx Pneumococcal Vaccination: 12/26/14 Review of Systems - Review of Systems Notes: REVIEW OF SYSTEMS: CONSTITUTIONAL : Denies recent illness. Denies recent unintentional weight loss. Denies fever, chills, or sweats. EENT: Denies eye, ear, throat, or mouth pain, discharge, or symptoms. Denies nasal or sinus congestion. CARDIOVASCULAR: See HPI. RESPIRATORY: Denies shortness of breath, cough, congestion, difficulty breathing, or wheezing. GASTROINTESTINAL: See HPI. GENITOURINARY: Denies difficulty urinating, burning, blood in urine, urgency or frequency. MUSCULOSKELETAL: Denies neck and back pain. Denies joint pain or swelling. SKIN: Denies rash, itchiness, or lesions HEMATOLOGIC : Denies easy bruising or bleeding. LYMPHATIC: Denies swollen, painful, enlarged glands. NEUROLOGICAL: See HPI. PSYCHIATRIC: Denies stress, anxiety, alteration in sleep patterns, or depression. All other systems reviewed and negative. Physical Exam - Vital signs Vitals: Temp Pulse Resp BP Pulse Ox 98.6 F 69 16 137/65 H 98 12/13/18 17:15 12/13/18 17:15 12/13/18 17:15 12/13/18 17:15 12/13/18 17:15 - Notes Notes: PHYSICAL EXAMINATION: GENERAL: Appears ill, mild distress. HEAD: Normocephalic, atraumatic. EYES: PERRL, conjunctiva normal, all extraocular movements intact, sclera nonicteric ENT: Dry mucous membranes. NECK: Supple, no noticeable swelling, redness, rash. Normal range of motion. LUNGS: Equal breath sounds bilaterally and clear to auscultation. No wheezes rales or rhonchi. CARDIOVASCULAR: S1-S2, regular rate, regular rhythm. Radial pulses 2+, normal. ABDOMEN: Normoactive bowel sounds. Soft, nontender, no guarding, no rebound te nderness, and no masses palpated. EXTREMITIES: Normal strength and range of motion, no pitting or edema. No cyanosis. NEUROLOGICAL: Moves all extremities upon command. 3/5 strength in bilateral l ower extremities. PSYCH: Normal mood, normal affect. SKIN: Warm, dry. No rash, lesions, ulcerations noted. Normal skin turgor. Course - Re-evaluation Re-evalutation: 12/13/18 19:35 Patient has a leukocytosis of 18,200. Her coagulation studies are unremarkable. Her chemistries show that she is hyponatremic with a sodium of 133. Her lactic acid was 1.2.CT of the head was negative for any acute intracranial hemorrhage. 12/13/18 20:16 She is chest x-ray shows right lower lobe pneumonia. Bedside report was given to DONTRELL [place]. She will follow-up with the patient CT of the abdomen pelvis. I also advised that Dr. Ramires be consulted for this case for possible lumbar puncture. Discharge instructions are written. If the patient is able to be discharged, [facility] will discharge the patient. If not, the patient will be admitted to the hospital or transferred to another facility. - Vital Signs Vital signs: Temp Pulse Resp BP Pulse Ox 98.4 F 56 L 12 139/58 H 96 12/14/18 08:08 12/14/18 08:08 12/14/18 08:08 12/14/18 08:08 12/14/18 08:08 - Laboratory Result Diagrams: 12/14/18 05:38 12/14/18 05:38 Laboratory results interpreted by me: 12/13/18 12/13/18 12/13/18 16:55 16:55 16:55 WBC 18.2 H RDW 14.1 H Lymph % (Auto) 11.2 L Absolute Neuts (auto) 14.5 H Absolute Monos (auto) 1.5 H Seg Neutrophils % 79.9 H Sodium 133.6 L Creatine Kinase 29 L Total Protein 6.2 L Urine Urobilinogen 12/13/18 20:34 WBC RDW Lymph % (Auto) Absolute Neuts (auto) Absolute Monos (auto) Seg Neutrophils % Sodium Creatine Kinase Total Protein Urine Urobilinogen 4.0 H Discharge - Discharge Clinical Impression: Headache Qualifiers: Headache type: unspecified Headache chronicity pattern: acute headache Intractability: intractable Qualified Code(s): R51 - Headache Leukocytosis Qualifiers: Leukocytosis type: other Qualified Code(s): D72.828 - Other elevated white blood cell count Altered mental status Qualifiers: Altered mental status type: unspecified Qualified Code(s): R41.82 - Altered mental status, unspecified Condition: Stable Disposition: ADMITTED INPATIENT
[2018-12-13 17:16] LABS: ABSOLUTE BASOPHILS # (AUTO) 0.1 10^3/uL (0.0-0.2); ABSOLUTE MONOCYTES (AUTO) 1.5 10^3/uL (0.1-1.4); ABSOLUTE NEUT (AUTO) 14.5 10^3/uL (1.7-8.2); BASOPHILS % (AUTO) 0.3 % (0-2); EOSINOPHILS % (AUTO) 0.1 % (0-6); HEMATOCRIT 38.4 % (36.0-47.0); LYMPHOCYTES % (AUTO) 11.2 % (13-45); MEAN CORPUSCULAR HEMOGLOBIN 30.2 pg (27.0-33.4); MEAN CORPUSCULAR HGB CONC 33.8 g/dL (32.0-36.0); MEAN CORPUSCULAR VOLUME 89 fl (80-97); MONOCYTES % (AUTO) 8.5 % (3-13); PLATELET COUNT 339 10^3/uL (150-450); RED BLOOD COUNT 4.29 10^6/uL (3.72-5.28); RED CELL DISTRIBUTION WIDTH 14.1 % (11.5-14.0); SEGMENTED NEUTROPHILS % (AUTO) 79.9 % (42-78); TOTAL CELLS COUNTED % (AUTO) 100 %; WHITE BLOOD COUNT 18.2 10^3/uL (4.0-10.5)
[2018-12-13 17:23] LABS: PROTHROMBIN TIME 13.2 SEC (11.4-15.4)
[2018-12-13 17:24] LABS: PARTIAL THROMBOPLASTIN TIME 27.4 SEC (23.5-35.8)
--- NOTE | 2018-12-13 17:37 | RADIOLOGY REPORT (SQ) ---
EXAM DESCRIPTION: CT HEAD WITHOUT COMPLETED DATE/TIME: 12/13/2018 5:19 pm REASON FOR STUDY: dizziness and frontal headache COMPARISON: 01/26/2017 TECHNIQUE: Axial images acquired through the brain without intravenous contrast. Images reviewed wi th bone, brain and subdural windows. Additional sagittal and coronal reconstructions were generated. Images stored on PACS. All CT scanners at this facility use dose modulation, iterative reconstruction, and/or weight based d osing when appropriate to reduce radiation dose to as low as reasonably achievable (ALARA). [facility]: Dose Right [facility]: CareDose [facility]: Dose Right [facility]: Teradose 4D [facility]: Smart [employer] RADIATION DOSE: CT Rad equipment meets quality standard of care and radiation dose reduction techniq ues were employed. CTDIvol: 53.2 mGy. DLP: 1097 mGy-cm. mGy. LIMITATIONS: None. FINDINGS: VENTRICLES: Normal size and contour. CEREBRUM: No masses. No hemorrhage. No midline shift. No evidence for acute infarction. Normal gra y/white matter differentiation. No areas of low density in the white matter. CEREBELLUM: No masses. No hemorrhage. No alteration of density. No evidence for acute infarction. EXTRAAXIAL SPACES: No fluid collections. No masses. ORBITS AND GLOBE: No intra- or extraconal masses. Normal contour of globe without masses. CALVARIUM: No fracture. PARANASAL SINUSES: No fluid or mucosal thickening. SOFT TISSUES: No mass or hematoma. OTHER: No other significant finding. IMPRESSION: NORMAL BRAIN CT WITHOUT CONTRAST. EVIDENCE OF ACUTE STROKE: NO. COMMENT: Quality ID # 436: Final reports with documentation of one or more dose reduction techniques (e.g., Automated exposure control, adjustment of the mA and/or kV according to patient size, use of iterative reconstruction technique) TECHNICAL DOCUMENTATION: JOB ID: [id number] [employer]- All Rights Reserved Reading location - IP/workstation name: [email or web address]
[2018-12-13 17:40] LABS: ALBUMIN 3.7 g/dL (3.5-5.0); ALKALINE PHOSPHATASE 95 U/L (38-126); ANION GAP 8 (5-19); ASPARTATE AMINO TRANSFERASE 20 U/L (14-36); BILIRUBIN,DIRECT 0.2 mg/dL (0.0-0.4); BILIRUBIN,TOTAL 0.5 mg/dL (0.2-1.3); BLOOD UREA NITROGEN 14 mg/dL (7-20); CALCIUM 9.9 mg/dL (8.4-10.2); CARBON DIOXIDE 28 mmol/L (22-30); CHLORIDE 98 mmol/L (98-107); GLUCOSE 100 mg/dL (75-110); TOTAL PROTEIN 6.2 g/dL (6.3-8.2)
[2018-12-13] MEDS ORDERED: NORMAL SALINE 1000 ML 1,000 ML IV ONE ×2 (18:08→20:05)
--- NOTE | 2018-12-13 18:30 | EKG REPORT ---
SEVERITY:- BORDERLINE ECG - SINUS RHYTHM, AND PACS. BORDERLINE T ABNORMALITIES, ANTERIOR LEADS : Confirmed by: Raymundo Schulz MD 13-Dec-2018 18:29:17
[2018-12-13] MEDS ORDERED: ACETAMINOPHEN 325 MG TABLET PO ONE (18:44)
--- NOTE | 2018-12-13 19:51 | RADIOLOGY REPORT (SQ) ---
EXAM DESCRIPTION: CHEST SINGLE VIEW COMPLETED DATE/TIME: 12/13/2018 7:27 pm REASON FOR STUDY: weakness COMPARISON: None. EXAM PARAMETERS: NUMBER OF VIEWS: One view. TECHNIQUE: Single frontal radiographic view of the chest acquired. RADIATION DOSE: NA LIMITATIONS: None. FINDINGS: LUNGS AND PLEURA: Minimal parenchymal opacity at the right base. Left lung is clear. MEDIASTINUM AND HILAR STRUCTURES: No masses. Contour normal. HEART AND VASCULAR STRUCTURES: Heart normal in size. Normal vasculature. BONES: No acute findings. HARDWARE: None in the chest. OTHER: No other significant finding. IMPRESSION: Right basilar pneumonia. TECHNICAL DOCUMENTATION: JOB ID: [id number] [employer]- All Rights Reserved Reading location - IP/workstation name: [email or web address]
[2018-12-13 20:03] LABS: CREATINE KINASE MB 0.53 ng/mL (<4.55)
[2018-12-13 20:05] LABS: TROPONIN I < 0.012 ng/mL
[2018-12-13] MEDS ORDERED: CEFTRIAXONE 2 GM/D5W RTU 2 GM/50 ML RTUPB IV ONE (20:06)
[2018-12-13] MEDS ORDERED: MORPHINE SULFATE 10 MG/ML INJ IV ONE (20:08)
--- NOTE | 2018-12-13 20:25 | RADIOLOGY REPORT (SQ) ---
EXAM DESCRIPTION: CT ABDOMEN PELVIS WITH IV CONTRAST COMPLETED DATE/TME: 12/13/2018 17:14 CLINICAL HISTORY: 68 years, Female, abd pain COMPARISON: None. TECHNIQUE: Contrast enhanced CT of the abdomen/pelvis was performed. Coronal and sagittal reconstructions were acquired. Images stored on PACS. All CT scanners at this facility use dose modulation, iterative reconstruction, and/or weight based dosing when appropriate to reduce radiation dose to as low as reasonably achievable (ALARA). [facility]: Dose Right [facility]: CareDose [facility]: Dose Right [facility]: Teradose 4D [facility]: [employer] LIMITATIONS: None. FINDINGS: Limited evaluation of the lower chest reveals patchy groundglass opacities about the basilar segments of both lower lobes with elements of smooth interlobular septal thickening. Evaluation of the liver parenchyma reveals a subcentimeter low-density lesion located within the right hepatic lobe on image 12 of series 3, too small to accurately characterize. The liver otherwise appears to enhance normally. However, there is moderate intrahepatic and common bile duct dilatation, with the common bile duct measuring up to 1.0 cm in short axis. This biliary ductal dilatation extends inferiorly to the level of the ampulla. However, the pancreatic duct does not appear significantly dilated. The gallbladder has been removed. Spleen, pancreas, and both adrenal glands appear normal. A few simple cysts are noted about both kidneys. A linear calcific density is noted about the upper pole of the left kidney measuring approximately 0.4 cm in size. No hydronephrosis or hydroureter. The urinary bladder is well distended and shows no suspicious abnormality. Uterus is absent. Neither ovary is visualized. Small and large bowel appear normal in caliber. No evidence of bowel obstruction. The appendix is not visualized. There is a tiny fat-containing umbilical hernia. A small ovoid fluid density lesion is noted about the anterior aspect of the upper mid abdomen measuring 2.2 x 1.1 cm in size on image 22 of series 3. This most likely represents a benign lesion such as a small lymphangioma or mesothelial cyst. Mild calcifications are noted about the abdominal aorta. No suspicious lymphadenopathy is appreciated. There are no drainable fluid collections. Bone windows show no destructive osseous lesions. However, there is severe right hip joint osteoarthrosis with additional mild left hip joint osteoarthrosis. This severe right hip joint osteoarthrosis results in remodeling of the right femoral head. IMPRESSION: No acute abnormality within the abdomen or pelvis. Moderate intrahepatic and common bile duct dilatation, possibly related to prior cholecystectomy. However, correlation for obstructive laboratories is recommended as an ampullary stricture could technically result in these findings (although the absence of significant pancreatic duct dilatation makes this less likely). Patchy groundglass opacities with elements of smooth interlobular septal thickening about the basilar segments of both lower lobes, most likely corresponding to mild interstitial edema. Suggest follow-up to resolution (three months). TECHNICAL DOCUMENTATION: Quality ID # 436: Final reports with documentation of one or more dose reduction techniques (e.g., Automated exposure control, adjustment of the mA and/or kV according to patient size, use of iterative reconstruction technique) copyright 2011 [employer]- All Rights Reserved
[2018-12-13 20:51] LABS: APPEARANCE,URINE CLEAR; BILIRUBIN,URINE NEGATIVE (NEGATIVE); COLOR,URINE YELLOW; GLUCOSE, URINE NEGATIVE (NEGATIVE); KETONES,URINE NEGATIVE (NEGATIVE); LEUKOCYTE ESTERASE,URINE NEGATIVE (NEGATIVE); NITRITE,URINE NEGATIVE (NEGATIVE); PROTEIN,URINE NEGATIVE (NEGATIVE); URINE SPECIFIC GRAVITY 1.039
[2018-12-13] MEDS ORDERED: ONDANSETRON HCL INJ/PF 4 MG/2 ML SDV IV ONE (21:32)
--- NOTE | 2018-12-13 21:55 | EKG REPORT ---
SEVERITY:- BORDERLINE ECG - SINUS RHYTHM BORDERLINE T ABNORMALITIES, ANT-LAT LEADS : Confirmed by: Raymundo Schulz MD 13-Dec-2018 21:54:17
[2018-12-13] MEDS ORDERED: LIDOCAINE 1% INJ-PF (10 MG/ML) 30 ML SDV INJ ONE (22:09)
[2018-12-13] MEDS ORDERED: VANCOMYCIN HCL INJ 1000 MG VIAL IV ONE (23:06)
[2018-12-13] MEDS ORDERED: DOXYCYCLINE HYCLATE INJ 100 MG VIAL IV ONE (23:06)
[2018-12-13] MEDS ORDERED: ACYCLOVIR SODIUM INJ/PF 500 MG/10 ML SDV IV ONE (23:06)
--- NOTE | 2018-12-14 00:15 | ER Document Report ---
HPI - HPI Patient complains to provider of: headache, ams, hx of encephalopathy Time Seen by Provider: 12/13/18 16:43 Onset: This morning Onset/Duration: Sudden Severity: Moderate Pain Level: 5 Context: 68-year-old female with the listed past medical history brought in by her twin sister who gives most of the history, comes in for concern of headache, chills, altered mental status for the last day. His sister states the same thing happened 2 years ago and she was seen here. She states she has had 2 episodes of this in the past and no one has been able to tell her why she becomes "encephalopathic ". She states she had lumbar puncture done last time and he st ill could not tell her. She states she is on many medications and her symptoms resolved until now. She states her sister was just sitting there and not talking and then she complained of a headache. She had no one-sided weakness, facial droop, slurred speech, other fall or trauma. No cough, vomiting, fever, vision changes, dizziness, syncope, palpitations, abdominal pain, back pain, rash, UTI symptoms, chest pain, shortness breath, or any other accompanying symptoms. She has not sought care until now. No change in medication or diet. No tick bites. Does appear that when she was here 2 years ago she may have had Lyme disease however the patient and sister not sure if she was ever told this or treated for it. She denies any known tick bites. The sister states the last time they felt like the patient had a pneumonia when she actually didn't and didn't have any uri sx just like this time and was discharged on p.o. antibiotics and she came right back with worsening symptoms and was "encephalopathic". sister states it presented the exact same way the last time and it has happened a total of 3 times now so she knows what signs to look for and doesn't mess around and brings her in as soon as it happens. the pt was initially signed out to me by a coworker [employer] at the end of her shift for further workup and tx. not worse headache of life. Has had similar headaches before in the past. Denies sudden onset. No photophobia. No phonophobia. No neck pain/stiffness. No blood thinner use. Associated Symptoms: Headache, Nausea Exacerbated by: Movement Relieved by: Remaining still Similar symptoms previously: Yes Recently seen / treated by doctor: No - ROS Systems Reviewed and Negative: Yes All other systems reviewed and negative - To include 10 systems, unless mentioned in the hpi. Past Medical History - General Information source: Patient, Relative - twin sister - Social History Smoking Status: Smoker,Current Status Unk Frequency of alcohol use: None Drug Abuse: Prescription drugs - chronic pain on pain management Family History: CVA, DM, Hypertension Patient has suicidal ideation: No Patient has homicidal ideation: No - Past Medical History Cardiac Medical History: Reports: Hx Hypercholesterolemia, Hx Hypertension Denies: Hx Atrial Fibrillation, Hx Congestive Heart Failure, Hx DVT, Hx Pulmonary Embolism Pulmonary Medical History: Reports: Hx COPD - not on home O2 Endocrine Medical History: Reports: Hx Diabetes Mellitus Type 2 Renal/ Medical History: Denies: Hx Peritoneal Dialysis GI Medical History: Reports: Hx Gastroesophageal Reflux Disease Musculoskeletal Medical History: Reports Hx Arthritis - chronic pain-on pain management Psychiatric Medical History: Reports: Hx Depression Past Surgical History: Reports: Hx Appendectomy, Hx Cholecystectomy, Hx Hysterectomy - Immunizations Immunizations up to date: Yes Hx Diphtheria, Pertussis, Tetanus Vaccination: Yes Hx Pneumococcal Vaccination: 12/26/14 Vertical Provider Document - CONSTITUTIONAL Agree With Documented VS: Yes Exam Limitations: No Limitations General Appearance: Mild Distress Notes: GENERAL_APPEARANCE: well_nourished, alert, cooperative, mild obvious discomfort. Pleasant, obese, elderly white female, appears uncomfortable and unwell however not toxic, speaking in full sentences, in no sign of resp distress, adult sister at bedside VITALS: reviewed, see vital signs table. HEAD: normocephalic and atraumatic, no raccoon eyes, no hendricks signs. no swelling or ttp. EARS: canals_clear_bilat, TMs_clear, no_discharge_from_ears. no hemotympanum EYES: EOMI without pain, conjunctiva_clear. PERRL, eyelids wnl. no drainage. no ttp or crepitation of the orbits. no sign of orbital/periorbital cellulitis. no hyphema. No photophobia. No nystagmus. No subconjunctival hemorrhage MOUTH: no_lacerations inside_mouth. no broken teeth. no tmj clicking or ttp. pharynx wnl. tongue protrudes midline. no drooling, tripoding, voice change, or stridor, no thrush or oral lesions. no tongue or lip swelling. NOSE: no drainage or epistaxis NECK: no_swelling\\tenderness on the neck. no midline bony tenderness. no step offs or deformities. full rom. full strength. no meningeal signs. no sign of central cord syndrome. HEART: normal_rate, normal_rhythm, LUNGS: ctab. no chest wall ttp. no overlying skin changes. no flail chest or crepitation. ABDOMEN: normal_BS, soft, no_abd_tenderness, no rebound, guarding, distension, or peritoneal signs. no cva ttp. no overlying skin changes. BACK: no midline bony tenderness. no step offs or deformities. no overlying skin changes. no rash. RECTAL: deferred, however, no sign of loss of bowel or bladder or soiling of clothing. EXTREMITIES: strength 5/5 in all_extremities, good pulses all_extremities, no_abrasions\\lacerations in the extremities, no_swelling\\tenderness in the extremities. full rom. normal gait. good hand analysis mgr. brisk cap refill. no shortening or rotation of the limbs or other signs of deformities unless otherwise noted. SKIN: warm, dry, good_color. no other grossly visible overlying skin changes or signs of trauma unless otherwise noted. NEURO: reflexes symmetric throughout, cranial nerves 2 - 12 intact, motor_intact, sensory_intact. cerebellar function intact GLASCOW_COMA_SCORE: (adult) - eyes_open_spontaneously_4, verbal_converses_and_oriented_5, motor_obeys_commands_6, glasgow_coma_total_15, MENTAL_STATUS: speech_clear, oriented_X_3, responds_appropriately to questions. - INFECTION CONTROL TRAVEL OUTSIDE OF THE [place] IN LAST 30 DAYS: No Course - Re-evaluation Re-evalutation: 12/14/18 02:39 Pt here for concern of another episode of encephalopathy for the last day. She is brought in by her sister. She complains of headache, generalized weakness, and the sister states she has been intermittently altered. However she does not appear to be altered when i examine her most of the time however occasionally she appears somewhat confused but it appears transient. She is alert and oriented x3. She has no focal neuro deficit on my exam. She is nontoxic in appearance. Her labs were notable for a white count of 18,000 with a left amado ft. Her lactic acid was normal. she is afebrile. vitals stable. Her other labs were unremarkable to include her CSF. Lyme titer is pending. She was empirically covered with Rocephin, acyclovir, vanco, and doxycycline by Dr. Barber prior to a successful LP. She tolerated her LP without complication and had no post LP headache. She was pain controlled. ekg unremarkable per dr barber. cxr showed a right basilar pneumonia and was otherwise neg per rad and reviewed by myself. pt was initially signed out to me by another provider at the end of her shift pending ct abd pelv results and LP for dispo, she denied any abd sx to me. no ttp on exam. no uti sx. no vag complaints. ct brain neg for any thing acute per rad and reviewed by myself. ct abd and pelv with iv contrast just showed moderate intrahepatic and common bile duct dilatation, possibly related to prior cholecystectomy. However, correlation for obstructive laboratories is recommended as an ampullary stricture could technically result in these findings (although the absence of significant pancreatic duct dilatation makes this less likely),Patchy groundglass opacities with elements of smooth interlobular septal thickening about the basilar segments of both lower lobes, most likely corresponding to mild interstitial edema. she is s/p remote cholecystectomy and her ct was otherwise neg per rad and reviewed by myself. pt informed of her findings. She remained neuro nonfocal. Urine and blood cultures are pending. Secondary to unknown etiology of her headache and alleged altered mental status I did consult hospitalist, Dr. Wright, who agreed to accept the patient for further work-up and treatment. Care transferred to hospitalist in stable condition. Please refer to their note for further details of the visit. On reexam, pt improved with tx listed. remained stable. nontoxic. well appearing. pain controlled. case discussed with ER Attending, Dr. Barber, who directed and agrees with plan of care and advised to admit the pt for further work up and tx Documentation achieved through voice recording which may lead to some occasional accidental typographical errors. Extensive efforts have been made to proof read documentation to make sure these are the least as possible. Category Date Time Status Continuous Cardiac Monitoring (ED) NOW Care 12/13/18 16:49 Active EKG Documentation STAT Care 12/13/18 17:14 Completed EKG Documentation STAT Care 12/13/18 20:35 Completed EKG Documentation STAT Care 12/13/18 20:35 Completed Lumbar Puncture Setup (ED) NOW Care 12/13/18 22:09 Active Pulse Oximetry (ED) NOW Care 12/13/18 16:49 Active Saline Lock (ED) NOW Care 12/13/18 16:49 Active Vital Signs (ED) STAT Care 12/13/18 20:46 Active CHEST SINGLE VIEW [RAD] Stat Exams 12/13/18 18:[address] ABD/PELVIS WITH IV ONLY [CT] Stat Exams 12/13/18 17:[address] [CT HEAD WITHOUT] [CT] Stat Exams 12/13/18 16:44 Completed ADD ON [ADD ON TESTING BLD IN LAB] [CHEM] Stat Lab 12/13/18 16:55 Completed B BURGDORFERI (LYME) IGG AB Stat Lab 12/14/18 00:13 Received BLOOD CULTURE [MC] Stat Lab 12/13/18 20:20 Received CBC WITH DIFF [HEME] Stat Lab 12/13/18 16:55 Completed COMPREHENSIVE METABOLIC PANEL [CHEM] Stat Lab 12/13/18 16:55 Completed CREATINE KINASE MB [CHEM] Stat Lab 12/13/18 16:55 Completed CREATINE KINASE [CHEM] Stat Lab 12/13/18 16:55 Completed CSF CELL COUNT [HEME] Stat Lab 12/14/18 00:13 Completed CSF CELL COUNT [HEME] Stat Lab 12/14/18 00:13 Completed CSF CULTURE + GRAM STAIN [MC] Stat Lab 12/14/18 00:13 Received GLUCOSE,CSF [CHEM] Stat Lab 12/14/18 00:13 Completed LACTIC ACID SEPSIS [CHEM] Stat Lab 12/13/18 18:35 Completed LIPASE [CHEM] Stat Lab 12/13/18 16:55 Completed PARTIAL THROMBOPLASTIN TIME [COAG] Stat Lab 12/13/18 16:55 Completed PROTEIN,CSF [CHEM] Stat Lab 12/14/18 00:13 Completed PROTHROMBIN TIME/INR [COAG] Stat Lab 12/13/18 16:55 Completed TROPONIN I [CHEM] Stat Lab 12/13/18 16:55 Completed URINALYSIS [URIN] Stat Lab 12/13/18 20:34 Completed URINE CULTURE [MC] Stat Lab 12/13/18 20:34 Received VIRAL CULTURE (GENERAL) Stat Lab 12/14/18 00:13 Received Acetaminophen [Tylenol 325 mg Tablet] Med 12/13/18 18:44 Discontinued 975 mg PO NOW ONE Acyclovir Sodium [Zovirax Inj/Pf 500 mg/10 ml Sdv] Med 12/13/18 23:06 Discontinued 1,000 mg IV IVBAG (ED) ONE Acyclovir Sodium [Zovirax Inj/Pf 500 mg/10 ml Sdv] Med 12/14/18 02:00 Discontinued 1,000 mg IV IVBAG (ED) ONE Ceftriaxone 2 gm/D5w RTU [Rocephin RTU 2 gm/D5w 50 ml Med 12/13/18 20:06 Discontinued Premix Bag] 2 gm in 50 ml IV NOW Doxycycline Hyclate [Vibramycin Inj 100 mg Vial] Med 12/13/18 23:06 Discontinued 200 mg IV IVBAG (ED) ONE Doxycycline Hyclate [Vibramycin Inj 100 mg Vial] Med 12/14/18 01:30 Discontinued 200 mg IV IVBAG (ED) ONE Lidocaine HCl/Pf [Xylocaine 1% Inj-Pf (10 mg/ml) 30 ml Med 12/13/18 22:09 Discontinued Sdv] See Dose Instructions INJ NOW ONE Morphine Sulfate [Morphine 10 mg/ml Inj] Med 12/14/18 02:14 Once 4 mg IV NOW ONE Morphine Sulfate [Morphine 10 mg/ml Inj] Med 12/13/18 20:08 Discontinued 8 mg IV NOW ONE Normal Saline 1000 ml [NaCl 0.9% 1000 ml IV Soln] 1,000 Med 12/13/18 18:08 Discontinued ml IV BOLUS Normal Saline 1000 ml [NaCl 0.9% 1000 ml IV Soln] 1,000 Med 12/13/18 20:05 Discontinued ml IV BOLUS Ondansetron HCl/Pf [Zofran Inj/Pf 4 mg/2 ml Sdv] Med 12/13/18 21:32 Discontinued 4 mg IV NOW ONE Vancomycin HCl [Vancocin Inj 1000 mg Vial] Med 12/13/18 23:06 Discontinued 2,000 mg IV NOW ONE Vancomycin HCl [Vancocin Inj 1000 mg Vial] Med 12/14/18 02:00 Discontinued 2,000 mg IV NOW ONE EKG ER ONLY [ER] Stat Ot 12/13/18 Completed EKG ER ONLY [ER] Stat Ot 12/13/18 17:14 Completed 12/14/18 07:03 12/14/18 07:06 12/14/18 07:17 - Vital Signs Vital signs: Temp Pulse Resp BP Pulse Ox 98.6 F 69 16 137/65 H 98 12/13/18 17:15 12/13/18 17:15 12/13/18 17:15 12/13/18 17:15 12/13/18 17:15 12/13/18 22:09 Temp Pulse Resp BP Pulse Ox 12/13/18 17:15 98.6 F 69 16 137/65 H 98 12/14/18 07:16 Temp Pulse Resp BP BP Pulse Ox 12/14/18 02:30 98.3 F 14 135/76 H 94 12/14/18 02:29 16 93 12/14/18 02:01 17 94 12/14/18 02:00 14 146/78 H 95 12/14/18 01:59 19 95 12/14/18 01:30 11 L 119/81 93 12/14/18 01:29 15 93 12/14/18 01:14 98.2 F 12/14/18 01:01 12 124/65 98 12/14/18 01:00 13 98 12/14/18 00:51 16 122/69 99 12/14/18 00:50 13 98 12/14/18 00:40 12 114/61 97 12/14/18 00:39 12 96 12/14/18 00:31 11 L 120/65 98 12/14/18 00:30 12 98 12/14/18 00:25 15 122/70 98 12/14/18 00:24 12 98 12/14/18 00:11 18 172/121 H 98 12/14/18 00:10 25 H 99 12/14/18 00:01 22 H 177/78 H 97 12/14/18 00:00 12 100 12/13/18 23:51 17 154/71 H 12/13/18 23:50 19 12/13/18 23:49 18 155/70 H 12/13/18 23:48 20 12/13/18 23:42 14 151/70 H 94 12/13/18 23:41 15 94 12/13/18 23:01 13 130/73 H 95 12/13/18 23:00 13 95 12/13/18 22:01 15 130/53 H 95 12/13/18 22:00 17 95 12/13/18 21:01 14 130/73 H 95 12/13/18 21:00 14 95 12/13/18 20:01 19 133/61 H 94 12/13/18 20:00 19 95 12/13/18 19:01 23 H 127/73 H 91 L 12/13/18 19:00 26 H 94 12/13/18 18:59 20 134/93 H 94 12/13/18 17:15 98.6 F 69 16 137/65 H 98 - Laboratory Result Diagrams: 12/13/18 16:55 12/13/18 16:55 Laboratory results interpreted by me: 12/13/18 12/13/18 12/13/18 16:55 16:55 16:55 WBC 18.2 H RDW 14.1 H Lymph % (Auto) 11.2 L Absolute Neuts (auto) 14.5 H Absolute Monos (auto) 1.5 H Seg Neutrophils % 79.9 H Sodium 133.6 L Creatine Kinase 29 L Total Protein 6.2 L Urine Urobilinogen 12/13/18 22:09 Labs- Entire Visit 12/13/18 12/13/18 12/13/18 16:55 16:55 16:55 WBC 18.2 H RBC 4.29 Hgb 13.0 Hct 38.4 MCV 89 MCH 30.2 MCHC 33.8 RDW 14.1 H Plt Count 339 Lymph % (Auto) 11.2 L [place] % (Auto) 8.5 Eos % (Auto) 0.1 Baso % (Auto) 0.3 Absolute Neuts (auto) 14.5 H Absolute Lymphs (auto) 2.0 Absolute Monos (auto) 1.5 H Absolute Eos (auto) 0.0 Absolute Basos (auto) 0.1 Seg Neutrophils % 79.9 H PT 13.2 INR 1.00 APTT 27.4 Sodium 133.6 L Potassium 4.0 Chloride 98 Carbon Dioxide 28 Anion Gap 8 BUN 14 Creatinine 0.53 Est GFR ( Amer) > 60 Est GFR (MDRD) Non-Af > 60 Glucose 100 Lactic Acid Calcium 9.9 Total Bilirubin 0.5 Direct Bilirubin 0.2 Neonat Total Bilirubin Not Reportable Neonat Direct Bilirubin Not Reportable Neonat Indirect Bili Not Reportable AST 20 ALT 14 Alkaline Phosphatase 95 Creatine Kinase CK-MB (CK-2) Troponin I Total Protein 6.2 L Albumin 3.7 Lipase Urine Color Urine Appearance Urine pH Ur Specific [place] Urine Protein Urine Glucose (UA) Urine Ketones Urine Blood Urine Nitrite Urine Bilirubin Urine Urobilinogen Ur Leukocyte Esterase Urine WBC (Auto) Urine RBC (Auto) Squamous Epi Cells Auto Urine Ascorbic Acid Fluid Tube Number CSF Volume CSF Appearance CSF Color CSF WBC CSF RBC CSF Color (1) CSF Appearance (1) CSF Color (2) CSF Appearance (2) CSF Color (3) CSF Appearance (3) CSF Color (4) CSF Appearance (4) CSF Glucose CSF Total Protein 12/13/18 12/13/18 12/13/18 16:55 16:55 16:55 WBC RBC Hgb Hct MCV MCH MCHC RDW Plt Count Lymph % (Auto) [place] % (Auto) Eos % (Auto) Baso % (Auto) Absolute Neuts (auto) Absolute Lymphs (auto) Absolute Monos (auto) Absolute Eos (auto) Absolute Basos (auto) Seg Neutrophils % PT INR APTT Sodium Potassium Chloride Carbon Dioxide Anion Gap BUN Creatinine Est GFR ( Amer) Est GFR (MDRD) Non-Af Glucose Lactic Acid Calcium Total Bilirubin Direct Bilirubin Neonat Total Bilirubin Neonat Direct Bilirubin Neonat Indirect Bili AST ALT Alkaline Phosphatase Creatine Kinase 29 L CK-MB (CK-2) 0.53 Troponin I < 0.012 Total Protein Albumin Lipase 30.1 Urine Color Urine Appearance Urine pH Ur Specific [place] Urine Protein Urine Glucose (UA) Urine Ketones Urine Blood Urine Nitrite Urine Bilirubin Urine Urobilinogen Ur Leukocyte Esterase Urine WBC (Auto) Urine RBC (Auto) Squamous Epi Cells Auto Urine Ascorbic Acid Fluid Tube Number CSF Volume CSF Appearance CSF Color CSF WBC CSF RBC CSF Color (1) CSF Appearance (1) CSF Color (2) CSF Appearance (2) CSF Color (3) CSF Appearance (3) CSF Color (4) CSF Appearance (4) CSF Glucose CSF Total Protein 12/13/18 12/13/18 12/14/18 18:35 20:34 00:13 WBC RBC Hgb Hct MCV MCH MCHC RDW Plt Count Lymph % (Auto) [place] % (Auto) Eos % (Auto) Baso % (Auto) Absolute Neuts (auto) Absolute Lymphs (auto) Absolute Monos (auto) Absolute Eos (auto) Absolute Basos (auto) Seg Neutrophils % PT INR APTT Sodium Potassium Chloride Carbon Dioxide Anion Gap BUN Creatinine Est GFR ( Amer) Est GFR (MDRD) Non-Af Glucose Lactic Acid 1.2 Calcium Total Bilirubin Direct Bilirubin Neonat Total Bilirubin Neonat Direct Bilirubin Neonat Indirect Bili AST ALT Alkaline Phosphatase Creatine Kinase CK-MB (CK-2) Troponin I Total Protein Albumin Lipase Urine Color YELLOW Urine Appearance CLEAR Urine pH 7.0 Ur Specific [place] 1.039 Urine Protein NEGATIVE Urine Glucose (UA) NEGATIVE Urine Ketones NEGATIVE Urine Blood NEGATIVE Urine Nitrite NEGATIVE Urine Bilirubin NEGATIVE Urine Urobilinogen 4.0 H Ur Leukocyte Esterase NEGATIVE Urine WBC (Auto) 1 Urine RBC (Auto) 1 Squamous Epi Cells Auto 1 Urine Ascorbic Acid NEGATIVE Fluid Tube Number 1 CSF Volume 4.2 CSF Appearance CLEAR CSF Color COLORLESS CSF WBC 0 CSF RBC 277 CSF Color (1) COLORLESS CSF Appearance (1) CLEAR CSF Color (2) COLORLESS CSF Appearance (2) CLEAR CSF Color (3) COLORLESS CSF Appearance (3) CLEAR CSF Color (4) COLORLESS CSF Appearance (4) CLEAR CSF Glucose CSF Total Protein 12/14/18 12/14/18 00:13 00:13 WBC RBC Hgb Hct MCV MCH MCHC RDW Plt Count Lymph % (Auto) [place] % (Auto) Eos % (Auto) Baso % (Auto) Absolute Neuts (auto) Absolute Lymphs (auto) Absolute Monos (auto) Absolute Eos (auto) Absolute Basos (auto) Seg Neutrophils % PT INR APTT Sodium Potassium Chloride Carbon Dioxide Anion Gap BUN Creatinine Est GFR ( Amer) Est GFR (MDRD) Non-Af Glucose Lactic Acid Calcium Total Bilirubin Direct Bilirubin Neonat Total Bilirubin Neonat Direct Bilirubin Neonat Indirect Bili AST ALT Alkaline Phosphatase Creatine Kinase CK-MB (CK-2) Troponin I Total Protein Albumin Lipase Urine Color Urine Appearance Urine pH Ur Specific [place] Urine Protein Urine Glucose (UA) Urine Ketones Urine Blood Urine Nitrite Urine Bilirubin Urine Urobilinogen Ur Leukocyte Esterase Urine WBC (Auto) Urine RBC (Auto) Squamous Epi Cells Auto Urine Ascorbic Acid Fluid Tube Number 4 CSF Volume 4.2 CSF Appearance CLEAR CSF Color COLORLESS CSF WBC 0 CSF RBC 1 CSF Color (1) COLORLESS CSF Appearance (1) CLEAR CSF Color (2) COLORLESS CSF Appearance (2) CLEAR CSF Color (3) COLORLESS CSF Appearance (3) CLEAR CSF Color (4) COLORLESS CSF Appearance (4) CLEAR CSF Glucose 51 CSF Total Protein 39 - Diagnostic Test Radiology reviewed: Image reviewed, Reports reviewed Radiology results interpreted by me: 12/13/18 22:[address] 12/13/18 16:44 IMPRESSION: NORMAL BRAIN CT WITHOUT CONTRAST. EVIDENCE OF ACUTE STROKE: NO. Abdomen/Pelvis CT 12/13/18 17:14 IMPRESSION: No acute abnormality within the abdomen or pelvis. Moderate intrahepatic and common bile duct dilatation, possibly related to prior cholecystectomy. However, correlation for obstructive laboratories is recommended as an ampullary stricture could technically result in these findings (although the absence of significant pancreatic duct dilatation makes this less likely). Patchy groundglass opacities with elements of smooth interlobular septal thickening about the basilar segments of both lower lobes, most likely corresponding to mild interstitial edema. Suggest follow-up to resolution (three months). TECHNICAL DOCUMENTATION: Quality ID # [id number]: Final reports with documentation of one or more dose reduction techniques (e.g., Automated exposure control, adjustment of the mA and/or kV according to patient size, use of iterative reconstruction technique) copyright 2011 [facility]- All Rights Reserved Chest X-Ray 12/13/18 18:47 IMPRESSION: Right basilar pneumonia. - EKG Interpretation by Me EKG shows normal: Sinus rhythm Rate: Normal Rhythm: NSR - 66 bpm, no stemi, reviewed by dr barber. Procedures - Lumbar Puncture Lumbar puncture Time completed: 00:30 Consent obtained: Yes Lumbar puncture pre-procedure: Sterile PPE donned, Betadine prep applied, Sterile drapes applied Patient position: Lying - on left side Needle size: 22 Lumbar puncture location: L3 and L4 Anesthetic type: 1% Lidocaine mL's of anesthetic: 8 Amount/type of drainage: 5ml clear fluid Number of attempts: 2 Complications: No Notes: 12/14/18 02:38 procedure performed under direct supervision by Dr. Barber. Pt consented to procedure. procedure without incident. pt tolerated procedure well Discharge - Discharge Clinical Impression: Headache Qualifiers: Headache type: unspecified Headache chronicity pattern: acute headache Intractability: intractable Qualified Code(s): R51 - Headache Leukocytosis Qualifiers: Leukocytosis type: other Qualified Code(s): D72.828 - Other elevated white blood cell count Altered mental status Qualifiers: Altered mental status type: unspecified Qualified Code(s): R41.82 - Altered mental status, unspecified Condition: Stable Disposition: ADMITTED INPATIENT Admitting Provider: Adriana (Hospitalist) - accepted the pt at 2:30a Unit Admitted: Medical Floor
[2018-12-14 01:25] LABS: GLUCOSE,CSF 51 mg/dL (40-70); PROTEIN,CSF 39 mg/dL (12-60)
[2018-12-14] MEDS ORDERED: DOXYCYCLINE HYCLATE INJ 100 MG VIAL IV ONE (01:30)
[2018-12-14 01:39] LABS: APPEARANCE ALL TUBES CLEAR; APPEARANCE TUBE 1 CLEAR; APPEARANCE TUBE 2 CLEAR; APPEARANCE TUBE 3 CLEAR; APPEARANCE TUBE 4 CLEAR; COLOR ALL TUBES COLORLESS; COLOR TUBE 1 COLORLESS; COLOR TUBE 2 COLORLESS; COLOR TUBE 3 COLORLESS; COLOR TUBE 4 COLORLESS
[2018-12-14 01:40] LABS: CSF TOTAL VOLUME 4.2 CC; RED BLOOD CELL,CSF 277 /uL (0-10); VOLUME TUBE 4 1.2 CC
[2018-12-14 01:42] LABS: COLOR ALL TUBES COLORLESS; WHITE BLOOD CELL,CSF 0 /uL (0-5)
[2018-12-14 01:43] LABS: APPEARANCE ALL TUBES CLEAR; APPEARANCE TUBE 1 CLEAR; APPEARANCE TUBE 2 CLEAR; APPEARANCE TUBE 3 CLEAR; APPEARANCE TUBE 4 CLEAR; COLOR TUBE 1 COLORLESS; COLOR TUBE 2 COLORLESS; COLOR TUBE 3 COLORLESS; COLOR TUBE 4 COLORLESS; CSF TOTAL VOLUME 4.2 CC; VOLUME TUBE 4 1.2 CC
[2018-12-14 01:44] LABS: RED BLOOD CELL,CSF 1 /uL (0-10); WHITE BLOOD CELL,CSF 0 /uL (0-5)
[2018-12-14 01:51] LABS: CSF TUBE NUMBER 1; CSF TUBE NUMBER 4
[2018-12-14] MEDS ORDERED: VANCOMYCIN HCL INJ 1000 MG VIAL IV ONE ×2 (02:00→04:00)
[2018-12-14] MEDS ORDERED: ACYCLOVIR SODIUM INJ/PF 500 MG/10 ML SDV IV ONE ×2 (02:00→06:00)
[2018-12-14] MEDS ORDERED: MORPHINE SULFATE 10 MG/ML INJ IV ONE (02:14)
[2018-12-14] MEDS ORDERED: RINGERS SOLUTION,LACTATED 1,000 ML IV PRN (04:26)
[2018-12-14] MEDS ORDERED: LEVALBUTEROL HCL NEB 0.63 MG/3 ML AMPUL NEB PRN (04:26)
[2018-12-14] MEDS ORDERED: MAGNESIUM HYDROXIDE SUSP 30 ML UDCUP PO PRN (04:26)
[2018-12-14] MEDS ORDERED: ONDANSETRON HCL INJ/PF 4 MG/2 ML SDV IV PRN (04:26)
[2018-12-14] MEDS ORDERED: ZOLPIDEM TARTRATE 5 MG TABLET PO PRN (04:26)
[2018-12-14] MEDS ORDERED: MAG HYDROX/AL HYDROX/SIMETH SUSP 30 ML UDCUP PO PRN (04:26)
[2018-12-14] MEDS ORDERED: INSULIN REG, HUMAN 100 UNIT/ML 3 ML VIAL (PYX) SUBCUT PRN (04:41)
[2018-12-14] MEDS ORDERED: GLUCAGON,HUMAN RECOMB 1 MG INJ IM PRN (04:41)
[2018-12-14] MEDS ORDERED: DEXTROSE 50%-WATER 25 GM/50 ML DISP.SYRIN IV PRN ×2 (04:41)
[2018-12-14] MEDS ORDERED: DEXTROSE 40% GEL 15 GM TUBE PO PRN ×2 (04:41)
[2018-12-14] MEDS ORDERED: VANCOMYCIN HCL INJ 1000 MG VIAL ONE (04:42)
[2018-12-14] MEDS ORDERED: NALBUPHINE HCL INJ 10 MG/1 ML AMPULE IV PRN ×3 (04:43→07:24)
[2018-12-14] MEDS ORDERED: IBUPROFEN 800 MG TABLET PO PRN (04:43)
[2018-12-14] MEDS ORDERED: ACETAMINOPHEN 325 MG TABLET PO PRN (04:43)
[2018-12-14] MEDS ORDERED: VANCOMYCIN HCL INJ 1000 MG VIAL IV SCH (04:45)
[2018-12-14] MEDS ORDERED: ACYCLOVIR SODIUM INJ/PF 500 MG/10 ML SDV IV SCH (04:45)
[2018-12-14] MEDS: HEPARIN SOD (PORCINE) 5,000 UNIT/ML 1 ML VIAL SUBCUT SCH ×3 (05:13→21:31)
--- NOTE | 2018-12-14 06:21 | PDOC H&P ---
History of Present Illness Admission Date/PCP: 12/14/18 02:59 FAMILIA MOJICA MD Patient complains of: Altered mental status (confusion) History of Present Illness: LA PELLETIER is a 68 year old female who presented to the emergency room via EMS with acute confusion. Patient admits that she developed mild to moderate generalized weakness with chills and a moderate headache on the morning of 12/13/2018. Patient admits that her symptoms are very much the same as what she has experienced on 2 prior occasions with acute encephalitis related to her epidural injections for pain management. She had her last injection 2 weeks ago. The patient is somewhat confused but is accompanied by her sister who assists her in providing meaningful and reliable medical information. Patient has not identified any additional aggravating or ameliorating factors for her acute confusion. In the emergency room the patient had an extensive evaluation including a lumbar puncture. Initial evaluation is negative for meningitis and the patient is subsequently admitted to the hospital for further evaluation and treatment. Past Medical History Cardiac Medical History: Reports: Hyperlipidema, Hypertension Denies: Congestive Heart Failure, Coronary Artery Disease, Myocardial Infarction Pulmonary Medical History: Reports: Chronic Obstructive Pulmonary Disease (COPD), Pneumonia Denies: Asthma, Tuberculosis EENT Medical History: Denies: Cataracts, Ears - Hearing aids Neurological Medical History: Denies: Hemorrhagic CVA, Ischemic CVA, Seizures Endocrine Medical History: Reports: Diabetes Mellitus Type 2 Renal/ Medical History: Denies: Chronic Kidney Disease, Nephrolithiasis Malignancy Medical History: Reports: None GI Medical History: Denies: Cirrhosis, Crohn's Disease, Hepatitis, Ulcerative Colitis Musculoskeltal Medical History: Reports: Other - Chronic pain syndrome Denies: Arthritis, Gout Skin Medical History: Denies: Eczema, Psoriasis Psychiatric Medical History: Reports: Depression Denies: Alcohol Dependency, Substance Abuse, Tobacco Dependency Traumatic Medical History: Reports: None Hematology: Denies: Anemia, Bleeding Tendencies Infectious Medical History: Reports: None Past Surgical History Past Surgical History: Reports: Appendectomy, Cholecystectomy, Hysterectomy Social History Information Source: Patient Lives with: Friend Smoking Status: Former Smoker Frequency of Alcohol Use: Rare Hx Recreational Drug Use: No Drugs: None Hx Prescription Drug Abuse: No - Advance Directive Resuscitation Status: Full Code Surrogate healthcare decision maker:: Judi Merino Family History Family History: CAD, CVA, DM, Hypertension, Malignancy Parental Family History Reviewed: Yes Children Family History Reviewed: No Sibling(s) Family History Reviewed.: Yes Medication/Allergy Home Medications: Albuterol Sulfate [Proair HFA] 2 puff IH Q6HP PRN 01/27/17 Amitriptyline HCl [Elavil 25 mg Tablet] 25 mg PO QHS 01/27/17 Aspirin [Aspirin 81 mg Chewable Tablet] 81 mg PO DAILY 01/27/17 Atorvastatin Calcium [Lipitor 40 mg Tablet] 40 mg PO QHS 01/27/17 Cyclobenzaprine HCl [Flexeril 10 mg Tablet] 10 mg PO Q8HP PRN 01/27/17 Fluoxetine HCl [Prozac] 40 mg PO QHS 01/27/17 Gabapentin [Neurontin] 1,200 mg PO Q8 01/27/17 Hydrochlorothiazide [Hydrodiuril 25 mg Tablet] 25 mg PO DAILY 01/27/17 Metformin HCl [Glucophage 500 mg Tablet] 500 mg PO BIDACBS 01/27/17 Metoprolol Succinate [Toprol Xl 25 mg Tab.sr] 25 mg PO DAILY 01/27/17 Morphine Sulfate [Morphine Sulfate ER] 30 mg PO Q8 01/27/17 Ondansetron [Zofran Odt] 8 mg PO Q8HP PRN 01/27/17 Oxymorphone HCl [Opana] 5 mg PO Q8HP PRN 01/27/17 Tramadol HCl [Ultram 50 mg Tablet] 50 mg PO 5XDP PRN 01/27/17 Azithromycin [Zithromax 250 mg Tablet] 500 mg PO DAILY@1700 #7 tablet 02/01/17 Budesonide/Formoterol Fumarate [Symbicort 160-4.5 Mcg Inhaler] 10.2 gm IH BID #1 hfa.aer.ad 02/01/17 Guaifenesin [Mucinex Sr 600 mg Tablet.sa] 600 mg PO Q12 #60 tablet.sa 02/01/17 Potassium Bicarbonate/Cit AC [Potassium 25 Meq Tab Eff] 25 meq PO DAILY #30 tablet.eff 02/01/17 Allergies/Adverse Reactions: ciprofloxacin [From Cipro] Allergy (Verified 01/27/17 12:18) Review of Systems Constitutional: PRESENT: as per HPI, headache(s). ABSENT: chills, fever(s) Eyes: ABSENT: visual disturbances, other - Eye pain Ears: ABSENT: hearing changes, other - Ear pain Nose, Mouth, and Throat: ABSENT: mouth pain, sore throat Cardiovascular: ABSENT: chest pain, palpitations Respiratory: ABSENT: cough, dyspnea Gastrointestinal: ABSENT: abdominal pain, constipation, diarrhea, nausea, vomi ting Genitourinary: ABSENT: dysuria, hematuria Musculoskeletal: ABSENT: back pain, joint swelling, muscle weakness Integumentary: ABSENT: pruritus, rash Neurological: ABSENT: confusion, convulsions, focal weakness, memory loss, syncope Psychiatric: ABSENT: anxiety, depression Endocrine: ABSENT: cold intolerance, heat intolerance Hematologic/Lymphatic: ABSENT: easy bleeding, easy bruising Allergic/Immunologic: ABSENT: seasonal rhinorrhea Physical Exam Vital Signs: Temp Pulse Resp BP Pulse Ox 98.0 F 69 17 131/81 H 94 12/14/18 03:01 12/13/18 17:15 12/14/18 03:01 12/14/18 03:01 12/14/18 03:01 Intake & Output 12/12/18 12/13/18 12/14/18 23:59 23:59 23:59 Intake Total 2049 Balance 2049 Weight 80.739 kg General appearance: PRESENT: no acute distress, cooperative Head exam: PRESENT: atraumatic, normocephalic Eye exam: PRESENT: conjunctiva pink. ABSENT: conjunctival injection, scleral icterus Ear exam: PRESENT: normal external ear exam. ABSENT: bleeding, drainage Mouth exam: PRESENT: dry mucosa, neck supple Neck exam: PRESENT: full ROM. ABSENT: JVD, meningismus, thyromegaly, tracheal deviation Cardiovascular exam: PRESENT: RRR Pulses: PRESENT: normal radial pulses, normal dorsalis pedis pul Vascular exam: PRESENT: normal capillary refill. ABSENT: pallor GI/Abdominal exam: PRESENT: [place] - [id number], soft Extremities exam: ABSENT: joint swelling, pedal edema Musculoskeletal exam: ABSENT: deformity, dislocation Neurological exam: PRESENT: altered - Mildly confused, oriented to person, oriented to place, oriented to time, oriented to situation, CN II-XII grossly intact. ABSENT: motor sensory deficit Psychiatric exam: PRESENT: appropriate affect, normal mood Skin exam: PRESENT: dry, intact, warm. ABSENT: jaundice, rash, urticaria Results Laboratory Results: 12/13/18 16:55 12/13/18 16:55 12/13/18 12/13/1819 16:55 16:55 16:55 WBC 18.2 H RBC 4.29 Hgb 13.0 Hct 38.4 MCV 89 MCH 30.2 MCHC 33.8 RDW 14.1 H Plt Count 339 Seg Neutrophils % 79.9 H Sodium 133.6 L Potassium 4.0 Chloride 98 Carbon Dioxide 28 Anion Gap 8 BUN 14 Creatinine 0.53 Est GFR ( Amer) > 60 Glucose 100 Lactic Acid Calcium 9.9 Total Bilirubin 0.5 AST 20 Alkaline Phosphatase 95 Total Protein 6.2 L Albumin 3.7 Lipase 30.1 Urine Color Urine Appearance Urine pH Ur Specific [place] Urine Protein Urine Glucose (UA) Urine Ketones Urine Blood Urine Nitrite Ur Leukocyte Esterase Urine WBC (Auto) Urine RBC (Auto) Fluid Tube Number CSF Volume CSF Appearance CSF Color CSF WBC CSF RBC CSF Color (1) CSF Appearance (1) CSF Color (2) CSF Appearance (2) CSF Color (3) CSF Appearance (3) CSF Color (4) CSF Appearance (4) CSF Glucose CSF Total Protein 12/13/18 12/13/18 12/14/18 18:35 20:34 00:13 WBC RBC Hgb Hct MCV MCH MCHC RDW Plt Count Seg Neutrophils % Sodium Potassium Chloride Carbon Dioxide Anion Gap BUN Creatinine Est GFR ( Amer) Glucose Lactic Acid 1.2 Calcium Total Bilirubin AST Alkaline Phosphatase Total Protein Albumin Lipase Urine Color YELLOW Urine Appearance CLEAR Urine pH 7.0 Ur Specific [place] 1.039 Urine Protein NEGATIVE Urine Glucose (UA) NEGATIVE Urine Ketones NEGATIVE Urine Blood NEGATIVE Urine Nitrite NEGATIVE Ur Leukocyte Esterase NEGATIVE Urine WBC (Auto) 1 Urine RBC (Auto) 1 Fluid Tube Number 1 CSF Volume 4.2 CSF Appearance CLEAR CSF Color COLORLESS CSF WBC 0 CSF RBC 277 CSF Color (1) COLORLESS CSF Appearance (1) CLEAR CSF Color (2) COLORLESS CSF Appearance (2) CLEAR CSF Color (3) COLORLESS CSF Appearance (3) CLEAR CSF Color (4) COLORLESS CSF Appearance (4) CLEAR CSF Glucose CSF Total Protein 12/14/18 12/14/18 00:13 00:13 WBC RBC Hgb Hct MCV MCH MCHC RDW Plt Count Seg Neutrophils % Sodium Potassium Chloride Carbon Dioxide Anion Gap BUN Creatinine Est GFR ( Amer) Glucose Lactic Acid Calcium Total Bilirubin AST Alkaline Phosphatase Total Protein Albumin Lipase Urine Color Urine Appearance Urine pH Ur Specific [place] Urine Protein Urine Glucose (UA) Urine Ketones Urine Blood Urine Nitrite Ur Leukocyte Esterase Urine WBC (Auto) Urine RBC (Auto) Fluid Tube Number 4 CSF Volume 4.2 CSF Appearance CLEAR CSF Color COLORLESS CSF WBC 0 CSF RBC 1 CSF Color (1) COLORLESS CSF Appearance (1) CLEAR CSF Color (2) COLORLESS CSF Appearance (2) CLEAR CSF Color (3) COLORLESS CSF Appearance (3) CLEAR CSF Color (4) COLORLESS CSF Appearance (4) CLEAR CSF Glucose 51 CSF Total Protein 39 12/13/18 12/13/18 16:55 16:55 Creatine Kinase 29 L CK-MB (CK-2) 0.53 Troponin I < 0.012 Impressions: Head CT 12/13/18 16:44 IMPRESSION: NORMAL BRAIN CT WITHOUT CONTRAST. EVIDENCE OF ACUTE STROKE: NO. Abdomen/Pelvis CT 12/13/18 17:14 IMPRESSION: No acute abnormality within the abdomen or pelvis. Moderate intrahepatic and common bile duct dilatation, possibly related to prior cholecystectomy. However, correlation for obstructive laboratories is recommended as an ampullary stricture could technically result in these findings (although the absence of significant pancreatic duct dilatation makes this less likely). Patchy groundglass opacities with elements of smooth interlobular septal thickening about the basilar segments of both lower lobes, most likely corresponding to mild interstitial edema. Suggest follow-up to resolution (three months). TECHNICAL DOCUMENTATION: Quality ID # 436: Final reports with documentation of one or more dose reduction techniques (e.g., Automated exposure control, adjustment of the mA and/or kV according to patient size, use of iterative reconstruction technique) copyright 2011 [employer]- All Rights Reserved Chest X-Ray 12/13/18 18:47 IMPRESSION: Right basilar pneumonia. Assessment and Plan - Diagnosis (1) Encephalitis Is this a current diagnosis for this admission?: Yes Plan: Patient will be continued on prophylactic antibiotic therapy until culture results have been negative for 72 hours. Her headache will be treated symptomatically with Nubain 5 to 10 mg IV every 3 hours on an as needed basis using a sliding scale for pain. (2) COPD (chronic obstructive pulmonary disease) Qualifiers: COPD type: unspecified COPD Qualified Code(s): J44.9 - Chronic obstructive pulmonary disease, unspecified Is this a current diagnosis for this admission?: Yes Plan: Patient be continued on her current therapy for COPD with formulary required changes. A PRN nebulizer therapy with Xopenex will also be available. Patient's O2 sat and respiratory status we monitored closely throughout her hospital stay. (3) Hyperlipidemia Qualifiers: Hyperlipidemia type: unspecified Qualified Code(s): E78.5 - Hyperlipidemia, unspecified Is this a current diagnosis for this admission?: Yes Plan: A lipid profile will be obtained to evaluate the patient's current therapy. She will be continued on her current lipid therapy and a cardiac diet. (4) Diabetes mellitus type 2 in obese Is this a current diagnosis for this admission?: Yes Plan: Patient will be continued on her usual diabetic therapy and diabetic diet. Before meals and at bedtime Accu-Cheks will be obtained and a sliding scale insulin will be administered for hyperglycemia with a hypoglycemic protocol also in place. Hemoglobin A1c will be obtained to evaluate the patient's current therapeutic efficacy. (5) HTN (hypertension) Qualifiers: Hypertension type: essential hypertension Qualified Code(s): I10 - Essential (primary) hypertension Is this a current diagnosis for this admission?: Yes Plan: Patient will be continued on her usual antihypertensive medications throughout her hospital course. Blood pressure be evaluated frequently during her hospital stay. Patient will be maintained on a cardiac diet. - Time Time Spent with patient: 25-34 minutes Medications reviewed and adjusted accordingly: Yes Anticipated discharge: Home - Inpatient Certification Based on my medical assessment, after consideration of the patient's comorbidities, presenting symptoms, or acuity I expect that the services needed warrant INPATIENT care.: Yes I certify that my determination is in accordance with my understanding of Medicare's requirements for reasonable and necessary INPATIENT services [42 CFR 412.3e].: Yes Medical Necessity: Significant Comorbidiites Make Outpatient Treatment Too Risky, Need Close Monitoring Due to Risk of Patient Decompensation, Need for Neurological Checks, Need for Pain Control, Need for IV Antibiotics, Risk of Complication if Not Cared For in Hospital
[2018-12-14] MEDS ORDERED: ACYCLOVIR SODIUM 900 MG in NORMAL SALINE 250 ML IV ONE ×2 (07:00→08:30)
[2018-12-14 07:54] LABS: FREE T3 2.39 pg/mL (2.77-5.27); FREE T4 (FREE THYROXINE) 0.92 ng/dL (0.78-2.19)
[2018-12-14 08:08] LABS: THYROID STIMULATING HORMONE 0.92 uIU/mL (0.47-4.68)
[2018-12-14] MEDS: LEVALBUTEROL HCL NEB 1.25 MG/3 ML AMPUL NEB SCH ×2 (08:11→16:09)
[2018-12-14] MEDS: BUDESONIDE NEB 0.5 MG/2 ML AMPUL NEB SCH ×2 (08:11→20:04)
[2018-12-14] MEDS: IPRATROPIUM BROMIDE 0.02% NEB 0.5 MG/2.5 ML AMPUL NEB SCH ×2 (08:11→16:08)
[2018-12-14 08:21] LABS: ABSOLUTE NEUT (AUTO) 9.2 10^3/uL (1.7-8.2); BASOPHILS % (AUTO) 0.2 % (0-2); EOSINOPHILS % (AUTO) 0.1 % (0-6); HEMATOCRIT 35.4 % (36.0-47.0); HEMOGLOBIN 11.8 g/dL (12.0-15.5); LYMPHOCYTES % (AUTO) 16.2 % (13-45); MEAN CORPUSCULAR HEMOGLOBIN 30.3 pg (27.0-33.4); MEAN CORPUSCULAR HGB CONC 33.5 g/dL (32.0-36.0); MEAN CORPUSCULAR VOLUME 91 fl (80-97); PLATELET COUNT 256 10^3/uL (150-450); RED BLOOD COUNT 3.91 10^6/uL (3.72-5.28); RED CELL DISTRIBUTION WIDTH 13.7 % (11.5-14.0); SEGMENTED NEUTROPHILS % (AUTO) 75.5 % (42-78); TOTAL CELLS COUNTED % (AUTO) 100 %; WHITE BLOOD COUNT 12.2 10^3/uL (4.0-10.5)
[2018-12-14 08:29] LABS: ANION GAP 5 (5-19); BLOOD UREA NITROGEN 11 mg/dL (7-20); CALCIUM 9.3 mg/dL (8.4-10.2); CARBON DIOXIDE 27 mmol/L (22-30); CHLORIDE 106 mmol/L (98-107); GLUCOSE 79 mg/dL (75-110); POTASSIUM 4.1 mmol/L (3.6-5.0)
[2018-12-14] MEDS: DOCUSATE SODIUM 100 MG CAPSULE PO SCH ×3 (09:11→18:09)
[2018-12-14] MEDS: FAMOTIDINE 20 MG TABLET PO SCH ×2 (09:11→21:29)
[2018-12-14] MEDS ORDERED: DIPHENHYDRAMINE HCL 50 MG/ML VIAL ONE (09:30)
[2018-12-14] MEDS ORDERED: DIPHENHYDRAMINE HCL 50 MG/ML VIAL IV ONE (12:30)
[2018-12-14] MEDS ORDERED: IBUPROFEN 600 MG TABLET PO PRN (12:55)
[2018-12-14] MEDS ORDERED: ALBUTEROL SULFATE HFA (90 MCG/PUFF) 200 PUFF/8.5 GM MDI IH PRN (12:55)
[2018-12-14] MEDS ORDERED: TRAMADOL HCL 50 MG TABLET PO PRN (12:55)
[2018-12-14] MEDS ORDERED: (PENDING PHARMACY ID) (Morphine Sulfate [Morphine Sulfate Er] 30 MG) PO SCH (14:00)
[2018-12-14] MEDS: GABAPENTIN 400 MG CAPSULE PO SCH ×2 (15:33→21:28)
[2018-12-14] MEDS: AMITRIPTYLINE HCL 25 MG TABLET PO SCH ×2 (15:33→21:31)
[2018-12-14] MEDS: MORPHINE SULFATE SR 30 MG TABLET PO SCH ×2 (15:33→21:29)
[2018-12-14] MEDS: VANCOMYCIN HCL 1,250 MG in DEXTROSE 5%-WATER 250 ML IV SCH (18:08)
[2018-12-14] MEDS: BACLOFEN 10 MG TABLET PO SCH (18:08)
[2018-12-14] MEDS: MORPHINE SULFATE IR 15 MG TABLET PO SCH (21:28)
[2018-12-14] MEDS ORDERED: CEFTRIAXONE 2 GM/D5W RTU 2 GM/50 ML RTUPB IV SCH (22:00)
[2018-12-15] MEDS: IPRATROPIUM BROMIDE 0.02% NEB 0.5 MG/2.5 ML AMPUL NEB SCH ×4 (00:01→23:54)
[2018-12-15] MEDS: LEVALBUTEROL HCL NEB 1.25 MG/3 ML AMPUL NEB SCH ×4 (00:01→23:54)
[2018-12-15] MEDS: MORPHINE SULFATE SR 30 MG TABLET PO SCH ×3 (05:39→21:24)
[2018-12-15] MEDS: GABAPENTIN 400 MG CAPSULE PO SCH ×3 (05:39→21:25)
[2018-12-15] MEDS: VANCOMYCIN HCL 1,250 MG in DEXTROSE 5%-WATER 250 ML IV SCH (05:41)
[2018-12-15] MEDS: HEPARIN SOD (PORCINE) 5,000 UNIT/ML 1 ML VIAL SUBCUT SCH ×3 (05:44→21:25)
[2018-12-15] MEDS: AMITRIPTYLINE HCL 25 MG TABLET PO SCH ×3 (05:44→21:25)
[2018-12-15 06:56] LABS: HEMATOCRIT 34.6 % (36.0-47.0); HEMOGLOBIN 11.4 g/dL (12.0-15.5); MEAN CORPUSCULAR VOLUME 91 fl (80-97); PLATELET COUNT 266 10^3/uL (150-450); RED BLOOD COUNT 3.81 10^6/uL (3.72-5.28); RED CELL DISTRIBUTION WIDTH 13.9 % (11.5-14.0); WHITE BLOOD COUNT 11.2 10^3/uL (4.0-10.5)
[2018-12-15 07:20] LABS: ANION GAP 5 (5-19); BLOOD UREA NITROGEN 13 mg/dL (7-20); CALCIUM 9.3 mg/dL (8.4-10.2); CARBON DIOXIDE 26 mmol/L (22-30); CHLORIDE 110 mmol/L (98-107); CHOLESTEROL 130.73 mg/dL (0-200); GLUCOSE 75 mg/dL (75-110); POTASSIUM 4.5 mmol/L (3.6-5.0); TRIGLYCERIDES 61 mg/dL (<150)
[2018-12-15 07:36] LABS: DIRECT LDL 59 mg/dL (<100)
[2018-12-15] MEDS ORDERED: FLUOXETINE HCL 20 MG CAPSULE PO SCH ×2 (08:00→22:00)
[2018-12-15] MEDS: BUDESONIDE NEB 0.5 MG/2 ML AMPUL NEB SCH ×2 (09:10→20:12)
[2018-12-15] MEDS: DOCUSATE SODIUM 100 MG CAPSULE PO SCH ×2 (10:38→17:08)
[2018-12-15] MEDS: HYDROCHLOROTHIAZIDE 25 MG TABLET PO SCH (10:38)
[2018-12-15] MEDS: FAMOTIDINE 20 MG TABLET PO SCH ×2 (10:38→21:24)
[2018-12-15] MEDS: MORPHINE SULFATE IR 15 MG TABLET PO SCH ×2 (10:39→21:23)
[2018-12-15] MEDS: BACLOFEN 10 MG TABLET PO SCH ×2 (10:39→17:08)
[2018-12-15] MEDS: METFORMIN HCL 500 MG TABLET PO SCH (10:39)
[2018-12-15] MEDS: ATORVASTATIN CALCIUM 40 MG TABLET PO SCH (10:39)
[2018-12-15] MEDS: METOPROLOL SUCCINATE 50 MG TAB.SR.24H PO SCH (10:39)
--- NOTE | 2018-12-15 13:09 | PDOC PROGRESS REPORT ---
Subjective Progress Note for:: 12/15/18 Subjective:: 12/15: Patient was seen and examined. She feels a lot better today. She is afebrile. White count improved. No pain or headache. She states she is doing much better. Reason For Visit: ACUTE ENCEPHALITIS WITH ENCEPHALOMYELITIS Physical Exam Vital Signs: Temp Pulse Resp BP Pulse Ox 97.5 F 75 16 113/65 92 12/15/18 11:11 12/15/18 11:11 12/15/18 11:11 12/15/18 11:11 12/15/18 11:11 Intake & Output 12/14/18 12/15/18 12/16/18 06:59 06:59 06:59 Intake Total 2160 988 Output Total 300 1500 Balance 1860 -512 Weight 176 lb 5.917 oz Exam: Patient is no acute distress Alert oriented to time place person No anxiety or depression Head: atraumatic normocephalic Pupils: are equal reactive Neck: is supple and trachea is central no lymphadenopathy No pharyngeal erythema or exudates Heart: Regular rate and rhythm Lungs: clear no distress Abdomen: nontender nondistended Neurological exam: unremarkable Musculoskeletal: No joint swelling or effusion chronic lower back pain and tenderness No suicidal or homicidal ideation Results Laboratory Results: 12/15/18 06:10 12/15/18 06:10 12/15/18 12/15/18 06:10 06:10 WBC 11.2 H RBC 3.81 Hgb 11.4 L Hct 34.6 L MCV 91 MCH 30.0 MCHC 33.0 RDW 13.9 Plt Count 266 Sodium 141.1 Potassium 4.5 Chloride 110 H Carbon Dioxide 26 Anion Gap 5 BUN 13 Creatinine 0.48 L Est GFR ( Amer) > 60 Glucose 75 Calcium 9.3 Magnesium 2.0 Triglycerides 61 Cholesterol 130.73 LDL Cholesterol Direct 59 VLDL Cholesterol 12.0 HDL Cholesterol 59 12/13/18 20:34 Clean Catch Midstream Urine Culture - Final Mixed Urogenital Hermelinda 12/13/18 12/13/18 12/14/18 16:55 16:55 11:03 Creatine Kinase 29 L CK-MB (CK-2) 0.53 Troponin I < 0.012 < 0.012 Impressions: Head CT 12/13/18 16:44 IMPRESSION: NORMAL BRAIN CT WITHOUT CONTRAST. EVIDENCE OF ACUTE STROKE: NO. Abdomen/Pelvis CT 12/13/18 17:14 IMPRESSION: No acute abnormality within the abdomen or pelvis. Moderate intrahepatic and common bile duct dilatation, possibly related to prior cholecystectomy. However, correlation for obstructive laboratories is recommended as an ampullary stricture could technically result in these findings (although the absence of significant pancreatic duct dilatation makes this less likely). Patchy groundglass opacities with elements of smooth interlobular septal thickening about the basilar segments of both lower lobes, most likely corresponding to mild interstitial edema. Suggest follow-up to resolution (three months). TECHNICAL DOCUMENTATION: Quality ID # 436: Final reports with documentation of one or more dose reduction techniques (e.g., Automated exposure control, adjustment of the mA and/or kV according to patient size, use of iterative reconstruction technique) copyright 2011 [employer]- All Rights Reserved Chest X-Ray 12/13/18 18:47 IMPRESSION: Right basilar pneumonia. Assessment and Plan - Diagnosis (1) Altered mental status Qualifiers: Altered mental status type: unspecified Qualified Code(s): R41.82 - Altered mental status, unspecified Is this a current diagnosis for this admission?: Yes Plan: Currently resolved. Encephalitis was suspected on admission. Clinical picture does not support that. CSF looks benign. Follow cultures. ID consulted. (2) Headache Qualifiers: Headache type: unspecified Headache chronicity pattern: acute headache Intractability: intractable Qualified Code(s): R51 - Headache Is this a current diagnosis for this admission?: Yes Plan: Currently resolved (3) Diabetes mellitus type 2 in obese Is this a current diagnosis for this admission?: Yes Plan: 12/14: Patient will be continued on her usual diabetic therapy and diabetic diet. Before meals and at bedtime Accu-Cheks will be obtained and a sliding scale insulin will be administered for hyperglycemia with a hypoglycemic protocol also in place. Hemoglobin A1c will be obtained to evaluate the patient's current therapeutic efficacy. 12/15: Hemoglobin A1c 5.8 (4) HTN (hypertension) Qualifiers: Hypertension type: essential hypertension Qualified Code(s): I10 - Essential (primary) hypertension Is this a current diagnosis for this admission?: Yes Plan: 12/14: Patient will be continued on her usual antihypertensive medications throughout her hospital course. Blood pressure be evaluated frequently during her hospital stay. Patient will be maintained on a cardiac diet. 12/15: Continue current medications. Monitor blood pressure. (5) Hyperlipidemia Qualifiers: Hyperlipidemia type: unspecified Qualified Code(s): E78.5 - Hyperlipidemia, unspecified Is this a current diagnosis for this admission?: Yes Plan: 12/14: A lipid profile will be obtained to evaluate the patient's current therapy. She will be continued on her current lipid therapy and a cardiac diet. 12/15: LDL is 59. (6) COPD (chronic obstructive pulmonary disease) Qualifiers: COPD type: unspecified COPD Qualified Code(s): J44.9 - Chronic obstructive pulmonary disease, unspecified Is this a current diagnosis for this admission?: Yes Plan: 12/14: Patient be continued on her current therapy for COPD with formulary required changes. A PRN nebulizer therapy with Xopenex will also be available. Patient's O2 sat and respiratory status we monitored closely throughout her hospital stay. 12/15: Stable. No exacerbation.
[2018-12-16 06:04] LABS: HEMATOCRIT 34.7 % (36.0-47.0); HEMOGLOBIN 11.6 g/dL (12.0-15.5); MEAN CORPUSCULAR HEMOGLOBIN 30.3 pg (27.0-33.4); MEAN CORPUSCULAR HGB CONC 33.5 g/dL (32.0-36.0); MEAN CORPUSCULAR VOLUME 90 fl (80-97); PLATELET COUNT 274 10^3/uL (150-450); RED BLOOD COUNT 3.84 10^6/uL (3.72-5.28); RED CELL DISTRIBUTION WIDTH 13.8 % (11.5-14.0); WHITE BLOOD COUNT 12.9 10^3/uL (4.0-10.5)
[2018-12-16] MEDS: GABAPENTIN 400 MG CAPSULE PO SCH (06:09)
[2018-12-16] MEDS: MORPHINE SULFATE SR 30 MG TABLET PO SCH (06:09)
[2018-12-16] MEDS: HEPARIN SOD (PORCINE) 5,000 UNIT/ML 1 ML VIAL SUBCUT SCH (06:12)
[2018-12-16] MEDS: AMITRIPTYLINE HCL 25 MG TABLET PO SCH (06:12)
[2018-12-16 06:29] LABS: BLOOD UREA NITROGEN 10 mg/dL (7-20); CALCIUM 9.5 mg/dL (8.4-10.2); GLUCOSE 96 mg/dL (75-110); POTASSIUM 4.2 mmol/L (3.6-5.0); VANCOMYCIN,TROUGH 8.4 ug/mL (5.0-20.0)
[2018-12-16 06:30] LABS: ANION GAP 7 (5-19); CARBON DIOXIDE 27 mmol/L (22-30); CHLORIDE 103 mmol/L (98-107)
[2018-12-16] MEDS: LEVALBUTEROL HCL NEB 1.25 MG/3 ML AMPUL NEB SCH (08:22)
[2018-12-16] MEDS: IPRATROPIUM BROMIDE 0.02% NEB 0.5 MG/2.5 ML AMPUL NEB SCH (08:22)
[2018-12-16] MEDS: BUDESONIDE NEB 0.5 MG/2 ML AMPUL NEB SCH (08:22)
[2018-12-16] MEDS: DOCUSATE SODIUM 100 MG CAPSULE PO SCH (10:01)
[2018-12-16] MEDS ORDERED: LEVOFLOXACIN 750 MG TABLET PO SCH (10:06)
--- NOTE | 2018-12-16 10:22 | PDOC DISCHARGE SUMMARY ---
General - Admit/Disc Date/PCP Admission Date/Primary Care Provider: 12/14/18 02:59 FAMILIA MOJICA MD Discharge Date: 12/16/18 - Discharge Diagnosis (1) Altered mental status Is this a current diagnosis for this admission?: Yes (2) Headache Is this a current diagnosis for this admission?: Yes (3) Diabetes mellitus type 2 in obese Is this a current diagnosis for this admission?: Yes (4) HTN (hypertension) Is this a current diagnosis for this admission?: Yes (5) Hyperlipidemia Is this a current diagnosis for this admission?: Yes (6) COPD (chronic obstructive pulmonary disease) Is this a current diagnosis for this admission?: Yes (7) Pneumonia Is this a current diagnosis for this admission?: Yes - Additional Information Resuscitation Status: Full Code Discharge Diet: As Tolerated Discharge Activity: Activity As Tolerated Prescriptions: Levofloxacin [Levaquin 750 mg Tablet] 750 mg PO DAILY #7 tablet Home Medications: Albuterol Sulfate [Proair HFA Inhalation Aerosol 8.5 gm MDI] 2 puff IH Q6HP PRN 12/14/18 Amitriptyline HCl [Elavil 25 mg Tablet] 25 mg PO Q8 12/14/18 Atorvastatin Calcium [Lipitor 40 mg Tablet] 40 mg PO DAILY 12/14/18 Baclofen [Baclofen 10 mg Tablet] 10 mg PO BID 12/14/18 Fluoxetine HCl [Prozac] 40 mg PO QAM 12/14/18 Gabapentin [Neurontin] 1,200 mg PO Q8 12/14/18 Hydrochlorothiazide [Hydrodiuril 25 mg Tablet] 25 mg PO DAILY 12/14/18 Ibuprofen [Motrin 600 mg Tablet] 600 mg PO BIDP PRN 12/14/18 Metformin HCl [Glucophage 500 mg Tablet] 500 mg PO QAM 12/14/18 Metoprolol Succinate [Toprol Xl 50 mg Tab.sr] 50 mg PO DAILY 12/14/18 Morphine Sulfate [Morphine Ir 15 mg Tablet] 15 mg PO Q12 12/14/18 Morphine Sulfate [Morphine Sulfate ER] 30 mg PO Q8 12/14/18 Tramadol HCl [Ultram 50 mg Tablet] 50 mg PO 5XDP PRN 12/14/18 Acetaminophen [Tylenol 325 mg Tablet] 650 mg PO Q4HP PRN tablet 12/16/18 Levofloxacin [Levaquin 750 mg Tablet] 750 mg PO DAILY #7 tablet 12/16/18 History of Present Illness History of Present Illness: LA PELLETIER is a 68 year old female who presented to the emergency room via EMS with acute confusion. Patient admits that she developed mild to moderate generalized weakness with chills and a moderate headache on the morning of 12/13/2018. Patient admits that her symptoms are very much the same as what she has experienced on 2 prior occasions with acute encephalitis related to her epidural injections for pain management. She had her last injection 2 weeks ago. The patient is somewhat confused but is accompanied by her sister who assists her in providing meaningful and reliable medical information. Patient has not identified any additional aggravating or ameliorating factors for her acute confusion. In the emergency room the patient had an extensive evaluation including a lumbar puncture. Initial evaluation is negative for meningitis and the patient is subsequently admitted to the hospital for further evaluation and treatment. Hospital Course Hospital Course: (1) Altered mental status Currently resolved. Encephalitis was suspected on admission. Clinical picture does not support that. CSF looks benign. Follow cultures. I discussed over the phone with Dr. Cedeno of [place] who was not convinced of encephalitis so my. We held antibiotics and the patient did well off antibiotics. (2) Headache Currently resolved (3) Diabetes mellitus type 2 in obese 12/14: Patient will be continued on her usual diabetic therapy and diabetic diet. Before meals and at bedtime Accu-Cheks will be obtained and a sliding scale insulin will be administered for hyperglycemia with a hypoglycemic protocol also in place. Hemoglobin A1c will be obtained to evaluate the patient's current therapeutic efficacy. 12/15: Hemoglobin A1c 5.8 (4) HTN (hypertension) 12/14: Patient will be continued on her usual antihypertensive medications throughout her hospital course. Blood pressure be evaluated frequently during her hospital stay. Patient will be maintained on a cardiac diet. 12/15: Continue current medications. Monitor blood pressure. (5) Hyperlipidemia 12/14: A lipid profile will be obtained to evaluate the patient's current therapy. She will be continued on her current lipid therapy and a cardiac diet. 12/15: LDL is 59. (6) COPD (chronic obstructive pulmonary disease) 12/14: Patient be continued on her current therapy for COPD with formulary required changes. A PRN nebulizer therapy with Xopenex will also be available. Patient's O2 sat and respiratory status we monitored closely throughout her hospital stay. 12/15: Stable. No exacerbation. (7) pneumonia Chest x-ray was with questionable right lower lobe infiltrates. Patient was coughing slightly today. Will discharge on oral course of Levaquin. Physical Exam Vital Signs: Temp Pulse Resp BP Pulse Ox 97.7 F 57 L 16 120/93 H 92 12/16/18 07:55 12/16/18 07:55 12/16/18 07:55 12/16/18 07:55 12/16/18 07:55 Intake & Output 12/15/18 12/16/18 12/17/18 06:59 06:59 06:59 Intake Total 988 1930 Output Total 1500 Balance -512 1930 Weight 212 lb 4.882 oz Exam: Patient is no acute distress Alert oriented to time place person No anxiety or depression Head: atraumatic normocephalic Pupils: are equal reactive Neck: is supple and trachea is central no lymphadenopathy No pharyngeal erythema or exudates Heart: Regular rate and rhythm Lungs: clear no distress Abdomen: nontender nondistended Neurological exam: unremarkable Musculoskeletal: No joint swelling or effusion chronic lower back pain and tenderness No suicidal or homicidal ideation Results Laboratory Results: 12/16/18 05:30 12/16/18 05:30 12/16/18 12/16/18 05:30 05:30 WBC 12.9 H RBC 3.84 Hgb 11.6 L Hct 34.7 L MCV 90 MCH 30.3 MCHC 33.5 RDW 13.8 Plt Count 274 Sodium 137.0 Potassium 4.2 Chloride 103 Carbon Dioxide 27 Anion Gap 7 BUN 10 Creatinine 0.51 L Est GFR ( Amer) > 60 Glucose 96 Calcium 9.5 Magnesium 1.8 12/13/18 20:34 Clean Catch Midstream Urine Culture - Final Mixed Urogenital Hermelinda 12/13/18 12/13/18 12/14/18 16:55 16:55 11:03 Creatine Kinase 29 L CK-MB (CK-2) 0.53 Troponin I < 0.012 < 0.012 Impressions: Head CT 12/13/18 16:44 IMPRESSION: NORMAL BRAIN CT WITHOUT CONTRAST. EVIDENCE OF ACUTE STROKE: NO. Abdomen/Pelvis CT 12/13/18 17:14 IMPRESSION: No acute abnormality within the abdomen or pelvis. Moderate intrahepatic and common bile duct dilatation, possibly related to prior cholecystectomy. However, correlation for obstructive laboratories is recommended as an ampullary stricture could technically result in these findings (although the absence of significant pancreatic duct dilatation makes this less likely). Patchy groundglass opacities with elements of smooth interlobular septal thickening about the basilar segments of both lower lobes, most likely corresponding to mild interstitial edema. Suggest follow-up to resolution (three months). TECHNICAL DOCUMENTATION: Quality ID # [id number]: Final reports with documentation of one or more dose reduction techniques (e.g., Automated exposure control, adjustment of the mA and/or kV according to patient size, use of iterative reconstruction technique) copyright 2011 [employer]- All Rights Reserved Chest X-Ray 12/13/18 18:47 IMPRESSION: Right basilar pneumonia. Qualifiers - * PATIENT BEING DISCHARGED WITH ANY OF THE FOLLOWING DIAGNOSIS: No Acute Heart Failure - Is this a Heart Failure Patient?: No Plan Time Spent: Greater than 30 Minutes - 35 min
[2018-12-16] MEDS: HYDROCHLOROTHIAZIDE 25 MG TABLET PO SCH (10:23)
[2018-12-16] MEDS: METOPROLOL SUCCINATE 50 MG TAB.SR.24H PO SCH (10:23)
[2018-12-16] MEDS: ATORVASTATIN CALCIUM 40 MG TABLET PO SCH (10:23)
[2018-12-16] MEDS: FAMOTIDINE 20 MG TABLET PO SCH (10:24)
[2018-12-16] MEDS: MORPHINE SULFATE IR 15 MG TABLET PO SCH (10:24)
[2018-12-16] MEDS: BACLOFEN 10 MG TABLET PO SCH (10:24)
[2018-12-16] MEDS: METFORMIN HCL 500 MG TABLET PO SCH (10:24)
[2018-12-16 11:36] VITALS: BP 120/61
[2018-12-19 12:37] LABS: LYME P18 AB IGG CSF Absent (.); LYME P23 AB IGG CSF Absent (.); LYME P23 AB IGM CSF Absent (.); LYME P28 AB IGG CSF Absent (.); LYME P39 AB IGM CSF Absent (.); LYME P41 AB IGG CSF Absent (.); LYME P41 AB IGM CSF Absent (.); LYME P58 AB IGG CSF Absent (.); LYME P66 AB IGG CSF Absent (.); LYME P93 AB IGG CSF Absent (.)
[2018-12-19 14:49] LABS: LYME IGG WB CSF INTERP Negative (.); LYME IGM WB CSF INTERP Negative (.)
== END 2018-12-16 12:56 | disposition home or self-care (01) | DRG 97 ==
LOC: ER 16:19 → EH 12-14 02:59 → 4N 12-14 04:20
PROVIDERS: ADMIT Emergency Medicine; ATTEND Emergency Medicine
PROC: 009U3ZX Drainage of Spinal Canal, Percutaneous Approach, Diagnostic (ICD-10-PCS; principal; 2018-12-14)
DX: A86 Unspecified viral encephalitis (principal); J18.9 Pneumonia, unspecified organism; J44.0 Chronic obstructive pulmonary disease with (acute) lower respiratory infection; E11.9 Type 2 diabetes mellitus without complications; E66.9 Obesity, unspecified; I10 Essential (primary) hypertension; E78.5 Hyperlipidemia, unspecified; G89.4 Chronic pain syndrome; F32.9 Major depressive disorder, single episode, unspecified; E78.00 Pure hypercholesterolemia, unspecified; K21.9 Gastro-esophageal reflux disease without esophagitis; Z88.3 Allergy status to other anti-infective agents; Z79.82 Long term (current) use of aspirin; Z79.84 Long term (current) use of oral hypoglycemic drugs; Z79.899 Other long term (current) drug therapy; Z87.891 Personal history of nicotine dependence; Z83.3 Family history of diabetes mellitus; Z82.3 Family history of stroke; Z82.49 Family history of ischemic heart disease and other diseases of the circulatory system
CPT/HCPCS: 36415; 70450; 71045; 74177; 80048; 80053; 80061; 80202; 81001; 82550; 82553; 82945; 82962; 83036; 83605; 83690; 83735; 84157; 84439; 84443; 84481; 84484; 85025; 85027; 85610; 85730; 86617; 87040; 87070; 87086; 87205; 87252; 89050; 93005; 93010; 94640; 96361; 96365; 96367; 96375; 96376; 99285; J0133; J0696; J1200; J2270; J2300; J2405; J3370; J3490; J7030; J7050; J7060; J7120